=== PATIENT | female | born 1940 | race Caucasian/White ===

== ENCOUNTER 2019-11-21 10:57 | Outpatient (CLI) | payer MEDICARE ==
[2019-11-21 11:28] LABS: BASOPHILS # (AUTO) 0.1 10^3/uL (0.0-0.1); BASOPHILS % (AUTO) 0.4 %; EOSINOPHILS # (AUTO) 0.1 10^3/uL (0.0-0.7); EOSINOPHILS % (AUTO) 0.8 %; HGB - HEMOGLOBIN 8.4 g/dL (12.0-16.0); LYMPHOCYTES # (AUTO) 2.6 10^3/uL (1.5-3.5); LYMPHOCYTES % (AUTO) 20.2 %; MEAN CORPUSCULAR HEMOGLOBIN 21.1 pg (27.0-31.0); MEAN CORPUSCULAR HGB CONC 29.3 g/dL (32.0-36.0); MEAN CORPUSCULAR VOLUME 72.1 fL (81.0-99.0); MEAN PLATELET VOLUME 8.6 fL (7.9-10.8); MONOCYTES # (AUTO) 1.1 10^3/uL (0.0-1.0); MONOCYTES % (AUTO) 8.2 %; NEUTROPHILS # (AUTO) 8.9 10^3/uL (1.5-6.6); NEUTROPHILS % (AUTO) 69.2 %; PLT - PLATELET COUNT 426 10^3/uL (130-450); RED BLOOD COUNT 3.98 10^6/uL (4.20-5.40); RED CELL DISTRIBUTION WIDTH 20.1 % (12.0-15.0); WHITE BLOOD COUNT 12.8 x10^3/uL (4.8-10.8)
[2019-11-21 11:40] LABS: ALBUMIN 4.1 g/dL (3.2-5.5); ALBUMIN/GLOBULIN RATIO 1.1 (1.0-2.2); BILIRUBIN,TOTAL 0.7 mg/dL (0.2-1.0); CALCIUM 8.7 mg/dL (8.5-10.3); CREATININE 0.9 mg/dL (0.4-1.0); TOTAL PROTEIN 7.7 g/dL (6.7-8.2)
[2019-11-21 11:55] LABS: PLATELET ESTIMATE, MANUAL NORMAL (130-450,000) (NORMAL); PLATELET MORPHOLOGY NORMAL APPEARANCE (NORMAL)
== END 2019-11-21 10:58 | disposition home or self-care (01) ==
LOC: LAB 10:57
PROVIDERS: ATTEND Nurse Practitioner Family
DX: R10.31 Right lower quadrant pain (principal); R23.2 Flushing
CPT/HCPCS: 36415; 80053; 84443; 85025

== ENCOUNTER 2019-11-21 11:33 | Outpatient (CLI) | payer MEDICARE ==
--- NOTE | 2019-11-21 13:59 | XRAY Report ---
PROCEDURE: Lumbar Spine 2 View INDICATIONS: LOW BACK PAIN TECHNIQUE: 3 views of the lumbar spine were acquired. COMPARISON: None. FINDINGS: Bones: 5 lgs-bxg-[id number] vertebrae are present. There is normal bony alignment. Severe degenerativ e disc height loss and moderate endplate spur formation at the L4-5 level and L5-S1 levels. There is mild to moderate facet arthropathy. In combination this likely causes bilateral bony foraminal or taylor tral canal stenosis. There is mild disc height loss and the other lumbar levels and mild facet arthro nahomy as well. No vertebral body compression fractures. No suspicious bony lesions. Soft tissues: Overlying bowel gas pattern is normal. No suspicious soft tissue calcifications. IMPRESSION: 1. Severe disc degeneration at L4-5 and L5-S1. 2. Degenerative spur formation and facet arthropathy may cause bilateral bony foraminal or central ca nal narrowing. Consider MRI Reviewed by: Melania Briones MD on 11/21/2019 1:58 PM PDT Approved by: Melania Briones MD on 11/21/2019 1:58 PM PDT Station ID: [id number]
== END 2019-11-21 11:34 | disposition home or self-care (01) ==
LOC: DI 11:33
PROVIDERS: ATTEND Nurse Practitioner Family
DX: M51.36 Other intervertebral disc degeneration, lumbar region (principal); M51.37 Other intervertebral disc degeneration, lumbosacral region; M47.816 Spondylosis without myelopathy or radiculopathy, lumbar region; M47.817 Spondylosis without myelopathy or radiculopathy, lumbosacral region; R10.31 Right lower quadrant pain; R23.2 Flushing
CPT/HCPCS: 36415; 72100; 80053; 84443; 85025

== ENCOUNTER 2019-11-29 08:08 | Outpatient (CLI) | payer MEDICARE ==
[2019-11-29 08:30] LABS: BASOPHILS # (AUTO) 0.1 10^3/uL (0.0-0.1); BASOPHILS % (AUTO) 0.6 %; EOSINOPHILS # (AUTO) 0.4 10^3/uL (0.0-0.7); EOSINOPHILS % (AUTO) 3.7 %; HGB - HEMOGLOBIN 8.4 g/dL (12.0-16.0); LYMPHOCYTES # (AUTO) 2.8 10^3/uL (1.5-3.5); LYMPHOCYTES % (AUTO) 28.9 %; MEAN CORPUSCULAR HEMOGLOBIN 21.4 pg (27.0-31.0); MEAN CORPUSCULAR HGB CONC 29.2 g/dL (32.0-36.0); MEAN CORPUSCULAR VOLUME 73.5 fL (81.0-99.0); MEAN PLATELET VOLUME 8.8 fL (7.9-10.8); MONOCYTES # (AUTO) 0.8 10^3/uL (0.0-1.0); MONOCYTES % (AUTO) 7.7 %; NEUTROPHILS # (AUTO) 5.8 10^3/uL (1.5-6.6); NEUTROPHILS % (AUTO) 58.5 %; PLT - PLATELET COUNT 385 10^3/uL (130-450); RED BLOOD COUNT 3.92 10^6/uL (4.20-5.40); RED CELL DISTRIBUTION WIDTH 21.7 % (12.0-15.0); WHITE BLOOD COUNT 9.8 x10^3/uL (4.8-10.8)
[2019-11-29 08:43] LABS: CHOL/HDL RATIO 4.4 (<4.4); CHOLESTEROL 209 mg/dL; HDL CHOLESTEROL 47 mg/dL; LDL CHOLESTEROL,CALCULATED 139 mg/dL; VLDL CHOLESTEROL 23 mg/dL
[2019-11-29 08:52] LABS: HB2 TOTAL 8.7 g/dL; HEMOGLOBIN A1C 0.43 g/dL; HEMOGLOBIN A1C % 6.7 % (4.6-6.2)
== END 2019-11-29 08:09 | disposition home or self-care (01) ==
LOC: LAB 08:08
PROVIDERS: ATTEND Physician Assistant
DX: D50.9 Iron deficiency anemia, unspecified (principal); E78.5 Hyperlipidemia, unspecified; R73.9 Hyperglycemia, unspecified
CPT/HCPCS: 36415; 80061; 83036; 83721; 85025

== ENCOUNTER 2019-12-04 14:03 | Emergency (ER) | payer MEDICARE ==
--- NOTE | 2019-12-04 14:23 | ED Physician Documentation ---
History of Present Illness - Stated complaint Stated Complaint: WEAKNESS - Chief complaint Chief Complaint: General - History obtained from History obtained from: Patient, Family - History of Present Illness Timing: Today Pain level max: 0 Pain level now: 0 - Additonal information Additional information: 79-year-old female presents the emergency department complaint of generalized weakness. She states she has had an ongoing slow GI bleed over the past 2 weeks. She had a positive Hemoccult test with her doctor. She states over the past 2 days has become increasingly weak, short of breath with exertion. Feeling generally tired. She has an appointment with a surgeon in 1 week to discuss a colonoscopy and endoscopy. She states that this started after taking Motrin for her back. She is not currently taking any NSAIDs. She is not on any blood thinners. Last colonoscopy was approximately 13 years ago and was reportedly normal. No chest pain. Review of Systems Constitutional: denies: Fever, Chills Cardiac: denies: Palpitations, Calf pain Respiratory: denies: Cough, Hemoptysis, Wheezing GI: denies: Vomiting, Diarrhea : reports: Other (Normal stool color per patient.) Skin: denies: Rash Musculoskeletal: denies: Neck pain, Back pain Neurologic: denies: Headache PD PAST MEDICAL HISTORY - Past Medical History Past Medical History: Yes Musculoskeletal: Chronic back pain - Allergies Allergies/Adverse Reactions: Allergies Allergy/AdvReac Type Severity Reaction Status Date / Time No Known Drug Allergies Allergy Verified 12/04/19 14:56 - Living Situation Living Situation: reports: With family Living Arrangement: reports: At home - Social History Does the pt smoke?: No Does the pt have substance abuse?: No PD ED PE NORMAL - Vitals Vital signs reviewed: Yes - General General: Alert and oriented X 3, No acute distress, Well developed/nourished - HEENT HEENT: PERRL, Moist mucous membranes, Other (Pale conjunctiva) - Neck Neck: Supple, no meningeal sign - Cardiac Cardiac: RRR, Strong equal pulses - Respiratory Respiratory: No respiratory distress, Clear bilaterally - Abdomen Abdomen: Soft, Non tender, Non distended - Rectal Rectal: Pt declined (Had a rectal exam and fecal occult blood test with her doctor) - Back Back: No CVA TTP, No spinal TTP - Derm Derm: Warm and dry - Extremities Extremities: No edema - Neuro Neuro: Alert and oriented X 3 - Psych Psych: Normal mood, Normal affect Results - Vitals Vitals: Vital Signs - 24 hr 12/04/19 12/04/19 14:13 14:45 Temperature 36.8 C Heart Rate 104 H 88 Respiratory 16 16 Rate Blood Pressure 185/74 H 170/84 H O2 Saturation 98 99 Oxygen O2 Source Room air - EKG (time done) 1414 Rate: Rate (enter#) (92) Rhythm: NSR [place]: Normal, LAD Intervals: Normal MI QRS: Normal Ischemia: Normal ST segments - Labs Labs: Laboratory Tests 12/04/19 12/04/19 12/04/19 14:14 14:14 14:14 WBC 9.6 RBC 4.05 L Hgb 8.9 L Hct 30.4 L MCV 75.1 L MCH 22.0 L MCHC 29.3 L RDW 24.5 H Plt Count 336 MPV 8.8 Neut # (Auto) 5.9 Lymph # (Auto) 2.7 Cassia # (Auto) 0.8 Eos # (Auto) 0.2 Baso # (Auto) 0.0 Absolute Nucleated RBC 0.00 Nucleated RBC % 0.0 Manual Slide Review Indicated Platelet Estimate NORMAL (130-450,000) Platelet Morphology NORMAL APPEARANCE RBC Morph Micro Appear 1+ POLYCHROMASIA PT 12.9 H INR 1.1 APTT 25.7 Sodium Potassium Chloride Carbon Dioxide Anion Gap BUN Creatinine Estimated GFR (MDRD) Glucose Calcium Iron TIBC % Saturation Transferrin Total Bilirubin AST ALT Alkaline Phosphatase Total Protein Albumin Globulin Albumin/Globulin Ratio Lipase Urine Color Urine Clarity Urine pH Ur Specific [place] Urine Protein Urine Glucose (UA) Urine Ketones Urine Occult Blood Urine Nitrite Urine Bilirubin Urine Urobilinogen Ur Leukocyte Esterase Ur Microscopic Review Urine Culture Comments Blood Type O POSITIVE Antibody Screen NEGATIVE 12/04/19 12/04/19 12/04/19 14:14 14:20 15:05 WBC RBC Hgb Hct MCV MCH MCHC RDW Plt Count MPV Neut # (Auto) Lymph # (Auto) Cassia # (Auto) Eos # (Auto) Baso # (Auto) Absolute Nucleated RBC Nucleated RBC % Manual Slide Review Platelet Estimate Platelet Morphology RBC Morph Micro Appear PT INR APTT Sodium 135 Potassium 3.9 Chloride 102 Carbon Dioxide 24 Anion Gap 9.0 BUN 24 H Creatinine 0.9 Estimated GFR (MDRD) 61 L Glucose 172 H Calcium 9.0 Iron 373 H TIBC 458 H % Saturation 81 H Transferrin 327 Total Bilirubin 0.3 AST 15 ALT 12 Alkaline Phosphatase 75 Total Protein 7.5 Albumin 3.9 Globulin 3.6 Albumin/Globulin Ratio 1.1 Lipase 30 Urine Color YELLOW Urine Clarity CLEAR Urine pH 5.0 Ur Specific [place] >=1.030 H Urine Protein NEGATIVE Urine Glucose (UA) NEGATIVE Urine Ketones TRACE Urine Occult Blood NEGATIVE Urine Nitrite NEGATIVE Urine Bilirubin NEGATIVE Urine Urobilinogen 0.2 (NORMAL) Ur Leukocyte Esterase NEGATIVE Ur Microscopic Review NOT INDICATED Urine Culture Comments NOT INDICATED Blood Type Antibody Screen PD MEDICAL DECISION MAKING - ED course Complexity details: reviewed results, re-evaluated patient, considered differential, d/w patient ED course: Patient with a stable GI bleed. She was started on iron a week ago. She is on Prilosec, once a day at home and has been on this for about a year. We will increase this to twice a day. Pt is well-appearing, nontoxic. Afebrile. Hemoglobin has actually increased. Patient feels better after IV fluids. Patient counseled regarding signs and symptoms for which I believe and urgent re-evaluation would be necessary. Patient with good understanding of and agreement to plan and is comfortable going home at this time This document was made in part using voice recognition software. While efforts are made to proofread this document, sound alike and grammatical errors may occur. Departure - Departure Disposition: 01 Home, Self Care Clinical Impression: Dehydration Anemia Qualifiers: Anemia type: unspecified type Qualified Code(s): D64.9 - Anemia, unspecified Condition: Good Instructions: ED Dehydration Follow-Up: JENNY PATEL PA [Primary Care Provider] - Comments: Continue your current medications at home. You can increase your Prilosec to twice a day. Follow-up with your doctor for further care. Your iron levels appear above normal today. However given your bleeding, I would still continue your iron.
[2019-12-04 14:37] LABS: BASOPHILS % (AUTO) 0.4 %; EOSINOPHILS # (AUTO) 0.2 10^3/uL (0.0-0.7); EOSINOPHILS % (AUTO) 1.7 %; HGB - HEMOGLOBIN 8.9 g/dL (12.0-16.0); LYMPHOCYTES # (AUTO) 2.7 10^3/uL (1.5-3.5); LYMPHOCYTES % (AUTO) 28.5 %; MEAN CORPUSCULAR HGB CONC 29.3 g/dL (32.0-36.0); MEAN CORPUSCULAR VOLUME 75.1 fL (81.0-99.0); MEAN PLATELET VOLUME 8.8 fL (7.9-10.8); MONOCYTES # (AUTO) 0.8 10^3/uL (0.0-1.0); MONOCYTES % (AUTO) 7.9 %; NEUTROPHILS # (AUTO) 5.9 10^3/uL (1.5-6.6); PLT - PLATELET COUNT 336 10^3/uL (130-450); RED BLOOD COUNT 4.05 10^6/uL (4.20-5.40); RED CELL DISTRIBUTION WIDTH 24.5 % (12.0-15.0); WHITE BLOOD COUNT 9.6 x10^3/uL (4.8-10.8)
[2019-12-04 14:45] LABS: INR 1.1 (0.8-1.2); PT - PROTHROMBIN TIME 12.9 secs (9.9-12.6)
[2019-12-04 14:48] LABS: ALBUMIN 3.9 g/dL (3.2-5.5); ALBUMIN/GLOBULIN RATIO 1.1 (1.0-2.2); BILIRUBIN,TOTAL 0.3 mg/dL (0.2-1.0); CREATININE 0.9 mg/dL (0.4-1.0); TOTAL PROTEIN 7.5 g/dL (6.7-8.2)
[2019-12-04 14:52] LABS: PARTIAL THROMBOPLASTIN TIME 25.7 secs (24.9-33.3)
[2019-12-04] MEDS ORDERED: PANTOPRAZOLE 40 MG VIAL IVP STA (14:52)
[2019-12-04] MEDS ORDERED: SODIUM CHLORIDE 0.9% 1,000 ML IV STA ×2 (14:52)
[2019-12-04 14:56] LABS: PLATELET ESTIMATE, MANUAL NORMAL (130-450,000) (NORMAL); PLATELET MORPHOLOGY NORMAL APPEARANCE (NORMAL)
[2019-12-04 15:16] LABS: BILIRUBIN,URINE NEGATIVE (NEGATIVE); GLUCOSE, URINE (UA) NEGATIVE (NEGATIVE); KETONES,URINE (UA) TRACE mg/dL (NEGATIVE); LEUKOCYTE ESTERASE, URINE NEGATIVE (NEGATIVE); NITRITE,URINE NEGATIVE (NEGATIVE); OCCULT BLOOD,URINE NEGATIVE (NEGATIVE); PROTEIN,URINE NEGATIVE (NEGATIVE); UROBILINOGEN,URINE 0.2 (NORMAL) E.U./dL (NORMAL)
[2019-12-04 15:18] LABS: CLARITY,URINE CLEAR (CLEAR)
[2019-12-04 15:28] LABS: % IRON SATURATION 81 % (20-50); IRON 373 ug/dL (28-170); TOTAL IRON BINDING CAPACITY 458 ug/dL (250-450); TRANSFERRIN 327 mg/dL (192-382)
[2019-12-04 15:36] VITALS: BP 160/78
== END 2019-12-04 15:58 | disposition home or self-care (01) ==
LOC: ED 14:03
DX: E86.0 Dehydration (principal); D64.9 Anemia, unspecified; K92.2 Gastrointestinal hemorrhage, unspecified
CPT/HCPCS: 36415; 80053; 81001; 81003; 83540; 83690; 84466; 85025; 85610; 85730; 86850; 86900; 86901; 87086; 93005; 96374; 99284

== ENCOUNTER 2019-12-13 11:31 | Outpatient (CLI) | payer MEDICARE ==
[2019-12-13 11:43] LABS: MONOCYTES # (AUTO) 0.7 10^3/uL (0.0-1.0); RED CELL DISTRIBUTION WIDTH 28.4 % (12.0-15.0)
[2019-12-13 11:46] LABS: BASOPHILS # (AUTO) 0.1 10^3/uL (0.0-0.1); BASOPHILS % (AUTO) 0.6 %; EOSINOPHILS # (AUTO) 0.1 10^3/uL (0.0-0.7); EOSINOPHILS % (AUTO) 1.6 %; LYMPHOCYTES # (AUTO) 1.9 10^3/uL (1.5-3.5); LYMPHOCYTES % (AUTO) 24.4 %; MEAN CORPUSCULAR HEMOGLOBIN 23.5 pg (27.0-31.0); MEAN CORPUSCULAR HGB CONC 29.6 g/dL (32.0-36.0); MEAN CORPUSCULAR VOLUME 79.3 fL (81.0-99.0); MEAN PLATELET VOLUME 8.6 fL (7.9-10.8); MONOCYTES % (AUTO) 8.6 %; NEUTROPHILS # (AUTO) 5.1 10^3/uL (1.5-6.6); NEUTROPHILS % (AUTO) 64.4 %; PLT - PLATELET COUNT 300 10^3/uL (130-450); RED BLOOD COUNT 4.26 10^6/uL (4.20-5.40); WHITE BLOOD COUNT 7.9 x10^3/uL (4.8-10.8)
[2019-12-13 12:16] LABS: RBC MORPHOLOGY (MULTIPLE) 4+ ANISOCYTOSIS (NORMAL)
== END 2019-12-13 11:32 | disposition home or self-care (01) ==
LOC: LAB 11:31
PROVIDERS: ATTEND Physician Assistant
DX: D50.9 Iron deficiency anemia, unspecified (principal)
CPT/HCPCS: 36415; 85025

== ENCOUNTER 2019-12-28 11:55 | Day surgery (SDC) | payer MEDICARE ==
[2019-12-28] MEDS ORDERED: LACTATED RINGERS 1,000 ML IV ONE ×3 (12:01→15:48)
[2019-12-28] MEDS ORDERED: fentaNYL 250 MCG/5 ML VIAL IVP ONE (13:59)
[2019-12-28] MEDS ORDERED: MIDAZOLAM 2 MG/2 ML VIAL IVP ONE (13:59)
[2019-12-28] MEDS ORDERED: LIDO GARGLE 30 ML BOTTLE ONE (14:00)
[2019-12-28] MEDS ORDERED: LIDO GARGLE 30 ML BOTTLE PO ONE (14:09)
[2019-12-28] MEDS ORDERED: BENZOCAINE/TETRACAINE/BUTAMBEN 20 GM TOP ONE (14:10)
[2019-12-28 15:15] LABS: BASOPHILS % (AUTO) 0.6 %; EOSINOPHILS % (AUTO) 0.4 %; HGB - HEMOGLOBIN 9.7 g/dL (12.0-16.0); LYMPHOCYTES # (AUTO) 1.5 10^3/uL (1.5-3.5); LYMPHOCYTES % (AUTO) 21.5 %; MEAN CORPUSCULAR HEMOGLOBIN 24.4 pg (27.0-31.0); MEAN CORPUSCULAR HGB CONC 29.7 g/dL (32.0-36.0); MEAN CORPUSCULAR VOLUME 82.4 fL (81.0-99.0); MEAN PLATELET VOLUME 9.1 fL (7.9-10.8); MONOCYTES # (AUTO) 0.6 10^3/uL (0.0-1.0); MONOCYTES % (AUTO) 8.5 %; NEUTROPHILS # (AUTO) 4.9 10^3/uL (1.5-6.6); NEUTROPHILS % (AUTO) 68.7 %; PLT - PLATELET COUNT 235 10^3/uL (130-450); RED BLOOD COUNT 3.97 10^6/uL (4.20-5.40); WHITE BLOOD COUNT 7.1 x10^3/uL (4.8-10.8)
[2019-12-28 15:28] LABS: ALBUMIN 3.4 g/dL (3.2-5.5); ALBUMIN/GLOBULIN RATIO 1.1 (1.0-2.2); BILIRUBIN,TOTAL 0.3 mg/dL (0.2-1.0); CALCIUM 8.7 mg/dL (8.5-10.3); CREATININE 0.7 mg/dL (0.4-1.0); TOTAL PROTEIN 6.5 g/dL (6.7-8.2)
[2019-12-28 15:29] LABS: PLATELET ESTIMATE, MANUAL NORMAL (130-450,000) (NORMAL); PLATELET MORPHOLOGY NORMAL APPEARANCE (NORMAL)
[2019-12-28] MEDS ORDERED: IOVERSOL 320 100 ML VIAL IVP ONE ×2 (16:17→19:23)
[2019-12-28 16:18] VITALS: BP 163/69
--- NOTE | 2019-12-28 18:12 | CT Report ---
PROCEDURE: Abdomen/Pelvis W INDICATIONS: Large right colon mass CONTRAST: IV CONTRAST: Optiray 320 ml: 100 PO CONTRAST: *NO PO CONTRAST TECHNIQUE: After the administration of oral and intravenous contrast, 5 mm thick sections acquired from the diap hragms to the symphysis. 5 mm thick coronal and sagittal reformats were acquired. For radiation dos e reduction, the following was used: automated exposure control, adjustment of mA and/or kV accordin g to patient size. COMPARISON: None. FINDINGS: Image quality: Excellent. ABDOMEN: Lung bases: There is mild atelectasis and scarring in the lung bases. Heart size is normal. There ar e partially visualized breast implants. There is a small hiatal hernia. Solid organs: There are 3 small hypodensities in the liver which are too small to characterize, measu ring up to 0.8 cm in segment 8 of the right hepatic lobe. Gallbladder appears within normal limits wi thout calcified gallstones. Biliary system is non dilated. Pancreas enhances normally. No adrenal n odules. Kidneys demonstrate no hydronephrosis. Peritoneum and bowel: Small bowel loops demonstrate normal wall thickness and caliber. There is segm ental wall thickening of the proximal ascending colon measuring up to approximately 5.1 cm in length with associated enhancement and mild pericolonic fat stranding. Colonic diverticulosis is demonstrate d without acute diverticulitis. No free fluid or air. Nodes and vessels: No retroperitoneal or mesenteric adenopathy by size criteria. Aorta and inferior vena cava are normal in size. Miscellaneous: No ventral hernias. PELVIS: Genitourinary: Bladder wall thickness is normal. Miscellaneous: No inguinal hernias or adenopathy. Bones: No suspicious bony lesions. No vertebral body compression fractures. IMPRESSION: 1. Segmental wall thickening and enhancement of the proximal descending colon is highly suspicious fo r an intramural neoplasm, such as adenocarcinoma. No associated bowel obstruction. 2. Small hypodense foci in the liver are too small to characterize. These likely represent small cyst s statistically but metastatic disease cannot be excluded. Reviewed by: Lj Dougherty MD on 12/28/2019 6:10 PM PDT Approved by: Lj Dougherty MD on 12/28/2019 6:10 PM PDT Station ID: [id number]
== END 2019-12-28 11:56 | disposition home or self-care (01) ==
LOC: SDS 11:55
PROVIDERS: ATTEND Surgery
PROC: 0DB68ZX Excision of Stomach, Via Natural or Artificial Opening Endoscopic, Diagnostic (ICD-10-PCS; 2019-12-28)
PROC: 0DB38ZX Excision of Lower Esophagus, Via Natural or Artificial Opening Endoscopic, Diagnostic (ICD-10-PCS; 2019-12-28)
PROC: 0DB48ZX Excision of Esophagogastric Junction, Via Natural or Artificial Opening Endoscopic, Diagnostic (ICD-10-PCS; 2019-12-28)
PROC: 0DBK8ZX Excision of Ascending Colon, Via Natural or Artificial Opening Endoscopic, Diagnostic (ICD-10-PCS; principal; 2019-12-28 13:00)
PROC: 0DB98ZX Excision of Duodenum, Via Natural or Artificial Opening Endoscopic, Diagnostic (ICD-10-PCS; 2019-12-28 13:00)
DX: C18.2 Malignant neoplasm of ascending colon (principal); R13.10 Dysphagia, unspecified; K21.9 Gastro-esophageal reflux disease without esophagitis; D50.9 Iron deficiency anemia, unspecified; K57.30 Diverticulosis of large intestine without perforation or abscess without bleeding; K44.9 Diaphragmatic hernia without obstruction or gangrene; K64.4 Residual hemorrhoidal skin tags; K64.8 Other hemorrhoids; Z85.3 Personal history of malignant neoplasm of breast; Z87.891 Personal history of nicotine dependence
CPT/HCPCS: 36415; 43239; 45380; 74177; 80053; 82378; 85025; A9270; J3010; J7120; Q9967

== ENCOUNTER 2020-01-10 10:56 | Outpatient (CLI) | payer MEDICARE | END 2020-01-10 10:57 | disposition home or self-care (01) | LOC: LAB 10:56 | PROVIDERS: ATTEND Surgery | DX: Z01.812 Encounter for preprocedural laboratory examination (principal); Z20.828 Contact with and (suspected) exposure to other viral communicable diseases; C18.2 Malignant neoplasm of ascending colon ==

== ENCOUNTER 2020-01-15 08:45 | Inpatient (IN) | payer MEDICARE ==
[2020-01-15] MEDS ORDERED: CEFAZOLIN SODIUM IN 0.9 % NACL 2 GM/100 ML BAG IV ONE (10:37)
[2020-01-15] MEDS ORDERED: metroNIDAZOLE 500 MG/100 ML 500 MG/100 ML BAG ONE (10:37)
[2020-01-15] MEDS ORDERED: LIDOCAINE 1%-EPI 1:100000 20 ML MDV ONE (11:10)
[2020-01-15] MEDS ORDERED: BUPIVACAINE 0.5% PF 30 ML VIAL ONE (11:10)
[2020-01-15] MEDS ORDERED: LACTATED RINGERS 1,000 ML IV ONE ×2 (11:14→14:55)
--- NOTE | 2020-01-15 11:27 | ANESTHESIA ---
Pre-Anesthesia VS, & Labs - Diagnosis acending colon cancer - Procedure laparoscopic right hemicolectomy Vital Signs: Temp Pulse Resp BP Pulse Ox 37 C 104 H 18 171/83 H 99 01/15/20 10:50 01/15/20 10:50 01/15/20 10:50 01/15/20 10:50 01/15/20 10:50 Height 5 ft 5 in Weight (kg) 77.5 kg Body Mass Index 29.1 - NPO >8 hours - Is Patient ?: No Home Medications and Allergies Home Medications: Ambulatory Orders Acetaminophen [Tylenol Extra Strength] 1 - 2 tab PO Q4HR PRN 01/10/20 Ferrous Sulfate 325 mg PO DAILY 01/10/20 Magnesium Citrate 250 mg PO DAILY 12/28/19 Omeprazole 20 mg PO DAILY 12/28/19 ALPRAZolam [Alprazolam] 0.25 mg PO TID 01/09/20 Acetaminophen [Tylenol Extra Strength] 1 - 2 tab PO Q4HR PRN 01/10/20 Ferrous Sulfate 325 mg PO DAILY 01/10/20 Allergies/Adverse Reactions: Allergies Allergy/AdvReac Type Severity Reaction Status Date / Time No Known Drug Allergies Allergy Verified 12/04/19 14:56 Anes History & Medical History - Anesthetic History Anesthesia Complications: reports: No previous complications - Medical History Cardiovascular: reports: None Pulmonary: reports: None Gastrointestinal: reports: GERD Urinary: reports: None Musculoskeletal: reports: Chronic back pain Endocrine/Autoimmune: reports: Type 2 diabetes Skin: reports: Psoriasis Smoking Status: Never smoker - Surgical History General: Colonoscopy, EGD Eyes Ears Nose Throat (EENT): Cataracts, Detached retina repair Gynecologic: Hysterectomy, Other Exam General: Alert, Oriented x3 Dental: WNL Mouth Opening: Greater than 4 Fingerbreadths Neck Mobility: Normal Mallampati classification: I Respiratory: Lungs clear Cardiovascular: Regular rate Mental/Cognitive Status: Alert/Oriented X3 Plan Anesthesia Type: General, Transverse Abdominis Plane (TAP) Block Consent for Procedure(s) Verified and Reviewed: Yes Code Status: Attempt Resuscitation ASA classification: 2-Mild systemic disease Is this case an emergency?: No
[2020-01-15] MEDS ORDERED: CELECOXIB 100 MG CAPSULE PO ONE (11:31)
[2020-01-15] MEDS ORDERED: GABAPENTIN 400 MG CAPSULE ONE (11:32)
[2020-01-15] MEDS ORDERED: ACETAMINOPHEN 1,000 MG/100 ML 100 ML IV ONE (11:32)
[2020-01-15] MEDS ORDERED: ROPIVACAINE 0.2% 200 MG/100 ML BAG EP ONE (11:40)
[2020-01-15] MEDS ORDERED: BUPIVACAINE 0.5%-EPI 1:200000 PF 30 ML VIAL SUBQ ONE ×2 (12:13)
[2020-01-15] MEDS ORDERED: LIDOCAINE 1%-EPI 1:100000 30 ML MDV SUBQ ONE ×2 (12:13)
--- NOTE | 2020-01-15 12:51 | PHARMACY PROGRESS NOTE ---
- Best Possible Medication History Admit Date and Time: 01/15/20 1047 Processed by: Nursing Medication History completed: Yes As the person ultimately responsible for medication therapy, providers are able to order a medication from an existing home medication list in [facility] via the "Reconcile Routine" prior to Confirmation of that medication by windows desktop support. Such practice is discouraged except when the physician, in their clinical judgment, deems that a medical need exists for a medication without regard to previous use.
[2020-01-15] MEDS ORDERED: ONDANSETRON 4 MG/2 ML VIAL IVP PRN ×2 (14:22→15:06)
[2020-01-15] MEDS ORDERED: methocarbamoL 500 MG TABLET PO PRN (14:34)
--- NOTE | 2020-01-15 14:35 | OPERATIVE REPORT ---
Operative Report - General Admit Date: 01/15/20 Procedure Date: 01/15/20 Planned Procedure: 1. Diagnostic laparoscopy 2. Laparoscopic adhesio lysis 3. Laparoscopic right colon resection 4. Laparoscopic hepatic flexure mobilization 5. Open umbilical hernia repair 6. Extracorporeal [id number] functional end-to-end isoperistaltic anastomosis 7. Tap block per anesthesia 8. Drain placement Pre-Op Diagnosis: Right colonic mass, near obstruction, bleeding/Blood loss anemia Procedure Performed: 1. Diagnostic laparoscopy 2. Laparoscopic adhesio lysis 3. Laparoscopic right colon resection 4. Laparoscopic hepatic flexure mobilization 5. Open umbilical hernia repair 6. Extracorporeal [id number] functional end-to-end isoperistaltic anastomosis 7. Tap block per anesthesia 8. Drain placement Post Op Diagnosis: Same, dense right colonic adhesions, no extracolonic metastases grossly - Procedure Note Primary Surgeon: Dr. Zulema Norton Secondary Surgeon: Dr. Tab Schroeder Anesthesia Provider: Leeanna Santana Anesthesia Technique: General ET tube, Local Pathology: 1. Right colon, normal ileum, cecum, appendix, ascending colon, hepatic flexure 2. Omental implant 3. Partial omentectomy Estimated Blood Loss (mL): 75 Drain/Tube Type: Santino drain Indications: Colon cancer, right. See electronic medical record and clinic note of Dr. Nikolas Vega. Findings: 1. Large near obstructing ascending colonic mass with site of impending perforation suture-ligated on expectation 2. Dense right-sided adhesions, including the ascending colon and transverse colon 3. Patent side to side functional end-to-end isoperistaltic anastomosis, viable, peristaltic, and intact 4. No evidence of extracolonic metastases grossly within the liver; single omental node sent unlikely metastatic disease Complications: None - Other Other Information/Narrative: Laparoscopic Right Colectomy: INDICATION: See electronic medical record and office note of Dr. Norton. OPERATIVE REPORT: The patient was taken to the operating room, placed supine on the operating tab le. At this time, bilateral lower extremity serial compression devices were placed. Informed consent was confirmed by OR staff, and thereafter, the patient was induced for general endotracheal anesthesia. The patient was placed for a Gabriel catheter and orogastric tube was inserted as well. Perioperative antibiotics of 1 g of Invanz were dosed within an hour of incision. All pressure points were offloaded and padded. At this time, a timeout was called and agreed to by all in the room. Laparoscopic access was achieved through open Henao at the level of the umbilicus in usual fashion. Please note a balloon Henao was used patient tolerated insufflation to 15 mmHg without any complication. Diagnostic laparoscopy was without any evidence of any inadvertent injury. Additional trochars were placed as follows: 1. suprapubic 5 mm trocar 2. Left upper quadrant 5 mm trocar 3. Left lower quadrant 5 mm trocar After pneumoperitoneum was established, and trochars were placed as per above under findings, the patient was thereafter placed in steep Trendelenburg with the right side up and we proceeded to continue with diagnostic laparoscopy. Again, liver was evaluated as was the omentum with findings as noted above. After adhesiolysis was performed, the omentum, which was freed from the pelvis and associated adhesions, was ultimately lifted above the transverse colon and the small bowel was reflected laterally to the left upper quadrant. At this time with the right colon tented, the ileocolic artery was noted after appropriate traction of the cecum into the anterior lateral direction. The associated "bowstringing" was seen and the peritoneum was thereafter scored using laparoscopic edelmira with energy and the underlying retroperitoneal structures were gently swept away. Ultimately, the ileocolic pedicle was identified, encircled and it was divided using a vascular load of an Endo-THANH stapler. With this completed, we proceeded to continue carefully sweeping the retroperitoneal structures posteriorly and away. The duodenum was protected throughout the entirety of this operative intervention. With the ileocolic artery divided, we proceeded to lyse the right colon's lateral peritoneal attachments, which were divided using cautery and the Ligasure Device. Once this was performed through to the hepatic flexure, we at this time having mobilized caecum, divided the ileocolic pedicle, mobilized the terminal ileum, we proceeded to place the patient in reverse Trendelenburg, allowing for better exposure for the remainder of this operative intervention. Using the Ligasure Advanced, we dissected free the gastrocolic ligament. The omentum was carefully from the transverse colon and this was also freed from adhesions within the mesentery as well. This was carefully performed through to hepatic flexure. Once accomplished, the transverse mesocolon could be appropriately elevated and evaluated. Again, the duodenum, head of pancreas were very carefully swept from beneath transverse mesocolon with gentle blunt dissection to avoid any vascular avulsion or injury. With these structures again protected and identified throughout the entirety of this case, we proceeded to continue marching up the right colonic mesentery, at which time the transverse mesocolon was elevated and tented bilaterally. With appropriate exposure, we proceeded to continue using the energy device to further delineate the branches of the middle colic. This was thereafter skeletonized and depending upon whether proceeding with a formal Right Hemicolectomy or Extended Right Colectomy, the vessels were divided using a vascular load of the Endo-THANH stapler (please see above for specifics under findings). With vasculature divided, the remainder of the transverse mesocolon was addressed using, again, the Ligasure vessel sealer. With this completed and the remainder of colonic mesocolon divided, we proceeded to perform the superior takedown of the hepatic flexure. Again, the duodenum and head of pancreas were noted and protected throughout the entirety of this operative procedure. Using the vessel sealer with the gastrocolic omentum already divided and the lesser sac entered, dissection was carried down towards the hepatic flexure and ultimately the hepatocolic ligament was divided, and the hepatic flexure was retracted medially to divide the final attachments using a gain the vessel sealer. Once the hepatic flexure was ultimately taken, we proceeded to assess for the mobility of the right colon, hepatic flexure, proximal and mid transverse colons which were all mobilized through to the distal transverse colon. With this completed, we thereafter proceeded with the anastamosis as follows. Extracorporeal Enterocolonic Anastamosis: The patient was planned for an extracorporeal stapled [id number] functional end-to-end anastomosis at this time (isoperistaltic). Once adequate length was achieved, again, the mobilized colon was exteriorized through incision and again was felt appropriate for a [id number] functional end-to-end anastomosis with adequate, viable, grossly normal margins. With the small bowel and colon lying comfortably besides one another, we chose a point of proximal margin which was divided for its mesentery, clamp-clamp, cut, tie with Vicryl ligature. The small bowel was divided using a Linear Cutter stapler. The colon was similarly divided at a chosen distal margin, within the transverse colon. This was again divided for its mesentery, using both the [id number] and tie process, using Vicryl ligatures. The colon was thereafter divided using the Linear Cutter stapler as well. Again, with the small bowel and colon lying comfortably beside one another with no torsion or twisting, enterotomies were made first through the small bowel at its antimesenteric border, and thereafter similarly through the antimesenteric border of the colon as well. These areas were pink, viable and notable for healthy bleeding margins. Once the enterotomy and colotomy was made an linear cutting stapler was inserted and once the taenia from the transverse colon was appropriately incorporated into the planned anastomotic site and mesentery was assured to be excluded from the staple line, the stapler was fired. This was done twice. Once stapler was withdrawn, 2 crotch stitches were placed in a seromuscular fashion. With this completed, Allis clamps were used to approximate the enterotomies and these were additionally in two layers, first with a running [place] stitch. Additional reinforcement was achieved with 2-0 Vicryl stitches to imbricate the staple lines as well as reinforce closure in a [place]t fashion. Once this was completed, the abdomen was irrigated and aspirated clear with no evidence of active bleeding. Once this was completed, a stapled [id number] functional end-to-end anastomosis was widely patent and again already confirmed as stated above for viability by pink healthy mucosa with bleeding edges and noted peristalsis. With this ileocolonic anastamosis completed, after confirming the anastomosis was intact and hemostatic, we proceeded to close the extraction site as follows: 1 - bidirectional loop PDS 2 - See below for skin closure With this completed, omentum was replaced over the anastomosis where available and after the abdomen had been extensively irrigated and aspirated clear, we proceeded to desufflate the abdomen. Santino drain placed through the left lower quadrant trocar and secured in place with 2-0 nylon. The incisions were all closed using skin matt after again irrigating. All sites closed with skin matt. The patient tolerated the procedure well for which there was no complication. All counts for sponges, needles, and instruments were correct at the conclusion of this operative case. The wounds were instilled with local anesthetic. The wounds were dressed with Telfa and Tegaderm, the patient was extubated and taken to postanesthesia care unit in stable condition. I was physically present for the entire procedure. These note this was a combined case where I was co-surgeon to Dr. Zulema Norton and throughout the entirety of the case we were both essential for visualization exposure dissection camera driving and performing the anastomosis and closure for which we would not be able to perform this independently.
[2020-01-15] MEDS ORDERED: LABETALOL 20 MG/4 ML SYRINGE IVP PRN (15:06)
[2020-01-15] MEDS ORDERED: ATROPINE ABBOJECT 1 MG/10 ML SYRINGE IVP PRN (15:06)
[2020-01-15] MEDS ORDERED: fentaNYL 100 MCG/2 ML VIAL IVP PRN (15:06)
[2020-01-15] MEDS ORDERED: METOCLOPRAMIDE 10 MG/2 ML VIAL IVP PRN (15:06)
[2020-01-15] MEDS ORDERED: NALOXONE 0.4 MG/ML VIAL IVP PRN (15:06)
[2020-01-15] MEDS ORDERED: HYDROmorphone 0.5 MG/0.5 ML SYRINGE IVP PRN (15:06)
[2020-01-15] MEDS ORDERED: MORPHINE 2 MG/ML CARPUJECT IVP PRN (15:06)
[2020-01-15] MEDS ORDERED: ePHEDrine 50 MG/ML VIAL IVP PRN (15:06)
[2020-01-15] MEDS ORDERED: HYDROmorphone 0.5 MG/0.5 ML SYRINGE ONE (15:26)
[2020-01-15] MEDS ORDERED: LACTATED RINGERS 1,000 ML IV SCH (16:00)
[2020-01-15] MEDS: HYDROmorphone 0.5 MG/0.5 ML SYRINGE IVP PRN (16:44)
[2020-01-15] MEDS: LACTATED RINGERS 1,000 ML IV SCH (16:57)
[2020-01-15] MEDS: KETOROLAC 15 MG/ML VIAL IVP SCH (18:03)
[2020-01-15] MEDS ORDERED: DEXAMETHASONE 4 MG/ML VIAL IVP ONE (18:11)
[2020-01-15] MEDS ORDERED: GLYCOPYRROLATE 1 MG/5 ML VIAL IVP ONE (18:11)
[2020-01-15] MEDS ORDERED: fentaNYL 100 MCG/2 ML VIAL IVP ONE (18:11)
[2020-01-15] MEDS ORDERED: PROPOFOL 200 MG/20 ML VIAL IVP ONE (18:11)
[2020-01-15] MEDS ORDERED: LABETALOL 5 MG/1 ML 20 ML MDV IVP ONE (18:11)
[2020-01-15] MEDS ORDERED: ROCURONIUM 50 MG/5 ML VIAL IVP ONE (18:11)
[2020-01-15] MEDS ORDERED: KETAMINE 500 MG/10 ML VIAL IVP ONE (18:11)
[2020-01-15] MEDS ORDERED: LIDOCAINE-MPF 2% 5 ML VIAL IM ONE (18:11)
[2020-01-15] MEDS: ceFAZolin 2 GM in SODIUM CHLORIDE 0.9% 100ML 100 ML IV SCH (20:54)
[2020-01-15] MEDS: PREGABALIN 25 MG CAPSULE PO SCH (20:54)
[2020-01-16] MEDS: KETOROLAC 15 MG/ML VIAL IVP SCH ×4 (00:05→17:58)
[2020-01-16] MEDS: ceFAZolin 2 GM in SODIUM CHLORIDE 0.9% 100ML 100 ML IV SCH (03:59)
[2020-01-16] MEDS: LACTATED RINGERS 1,000 ML IV SCH (03:59)
[2020-01-16] MEDS: HYDROmorphone 0.5 MG/0.5 ML SYRINGE IVP PRN ×3 (04:11→10:33)
[2020-01-16 05:24] LABS: BASOPHILS % (AUTO) 0.2 %; EOSINOPHILS # (AUTO) 0.1 10^3/uL (0.0-0.7); EOSINOPHILS % (AUTO) 1.3 %; HGB - HEMOGLOBIN 8.4 g/dL (12.0-16.0); LYMPHOCYTES # (AUTO) 1.7 10^3/uL (1.5-3.5); LYMPHOCYTES % (AUTO) 16.2 %; MEAN CORPUSCULAR HEMOGLOBIN 23.9 pg (27.0-31.0); MEAN CORPUSCULAR HGB CONC 29.1 g/dL (32.0-36.0); MEAN CORPUSCULAR VOLUME 82.3 fL (81.0-99.0); MEAN PLATELET VOLUME 9.5 fL (7.9-10.8); MONOCYTES # (AUTO) 0.8 10^3/uL (0.0-1.0); MONOCYTES % (AUTO) 7.8 %; NEUTROPHILS # (AUTO) 7.7 10^3/uL (1.5-6.6); NEUTROPHILS % (AUTO) 74.2 %; PLT - PLATELET COUNT 235 10^3/uL (130-450); RED BLOOD COUNT 3.51 10^6/uL (4.20-5.40); RED CELL DISTRIBUTION WIDTH 25.8 % (12.0-15.0); WHITE BLOOD COUNT 10.4 x10^3/uL (4.8-10.8)
[2020-01-16 05:34] LABS: CALCIUM 8.3 mg/dL (8.5-10.3); CREATININE 0.8 mg/dL (0.4-1.0)
[2020-01-16 05:56] LABS: PLATELET ESTIMATE, MANUAL NORMAL (130-450,000) (NORMAL); PLATELET MORPHOLOGY NORMAL APPEARANCE (NORMAL)
[2020-01-16] MEDS: PANTOPRAZOLE 40 MG VIAL IVP SCH (06:05)
[2020-01-16] MEDS: ENOXAPARIN 40 MG/0.4 ML SYRINGE SUBQ SCH (09:31)
[2020-01-16] MEDS: PREGABALIN 25 MG CAPSULE PO SCH ×2 (09:31→20:39)
[2020-01-16] MEDS ORDERED: ACETAMINOPHEN 325 MG TABLET PO PRN (13:34)
[2020-01-16] MEDS ORDERED: oxyCODONE 5 MG TABLET PO PRN (13:35)
--- NOTE | 2020-01-16 14:54 | PROVIDER PROGRESS NOTE ---
Subjective - General Admit Date: 01/15/20 Procedure Date: 01/15/20 Post Op Days: 1 Procedure Performed: Laparoscopic right kim colectomy - Review of Systems Wound/Incisions: positive: Dressing dry and intact Drain Type: Santino Drain Output Description: Serosanguinous General: positive: No symptoms HEENT: positive: No symptoms Pulmonary: positive: No symptoms Cardiovascular: positive: No symptoms Gastrointestinal: positive: Other (Feels like a bowel movement will be happening soon.) Objective - Patient Data Reviewed Vital Signs: Yes Vital Signs: Vital Signs x48h Temp Pulse Pulse Resp BP Pulse Ox 01/16/20 12:08 37 C 69 16 96 01/16/20 12:00 37.7 C H 80 150/69 H 96 01/16/20 08:00 37 C 69 16 129/52 L 96 Weight: Weight 01/14/20 01/15/20 01/16/20 23:59 23:59 23:59 Weight (kg) 77.5 kg Intake & Output: Intake and Output Totals x24h 01/14/20 01/15/20 01/16/20 23:59 23:59 23:59 Intake Total 2190 2005.000 Output Total 1030 865 Balance 1160 1140.000 - Lab Results Lab Results: 01/16/20 05:05 01/16/20 05:05 Other Lab Results: Lab Results x24hrs 01/16/20 01/16/20 01/16/20 Range/Units 11:37 07:53 05:05 WBC (4.8-10.8) x10^3/uL RBC (4.20-5.40) 10^6/uL Hgb (12.0-16.0) g/dL Hct (37.0-47.0) % MCV (81.0-99.0) fL MCH (27.0-31.0) pg MCHC (32.0-36.0) g/dL RDW (12.0-15.0) % Plt Count (130-450) 10^3/uL MPV (7.9-10.8) fL Neut # (Auto) (1.5-6.6) 10^3/uL Lymph # (Auto) (1.5-3.5) 10^3/uL Mcmullen # (Auto) (0.0-1.0) 10^3/uL Eos # (Auto) (0.0-0.7) 10^3/uL Baso # (Auto) (0.0-0.1) 10^3/uL Absolute Nucleated RBC x10^3/uL Nucleated RBC % /100WBC Manual Slide Review WBC Morphology (NORMAL) Platelet Estimate (NORMAL) Platelet Morphology (NORMAL) RBC Morph Micro Appear (NORMAL) Sodium 137 (135-145) mmol/L Potassium 3.9 (3.5-5.0) mmol/L Chloride 104 (101-111) mmol/L Carbon Dioxide 25 (21-32) mmol/L Anion Gap 8.0 (6-13) BUN 10 (6-20) mg/dL Creatinine 0.8 (0.4-1.0) mg/dL Estimated GFR (MDRD) 69 L (>89) Glucose 141 H (70-100) mg/dL POC Whole Bld Glucose 94 114 H (70 - 100) mg/dL Calcium 8.3 L (8.5-10.3) mg/dL 01/16/20 01/15/20 01/15/20 Range/Units 05:05 20:27 16:43 WBC 10.4 (4.8-10.8) x10^3/uL RBC 3.51 L (4.20-5.40) 10^6/uL Hgb 8.4 L (12.0-16.0) g/dL Hct 28.9 L (37.0-47.0) % MCV 82.3 (81.0-99.0) fL MCH 23.9 L (27.0-31.0) pg MCHC 29.1 L (32.0-36.0) g/dL RDW 25.8 H (12.0-15.0) % Plt Count 235 (130-450) 10^3/uL MPV 9.5 (7.9-10.8) fL Neut # (Auto) 7.7 H (1.5-6.6) 10^3/uL Lymph # (Auto) 1.7 (1.5-3.5) 10^3/uL Mcmullen # (Auto) 0.8 (0.0-1.0) 10^3/uL Eos # (Auto) 0.1 (0.0-0.7) 10^3/uL Baso # (Auto) 0.0 (0.0-0.1) 10^3/uL Absolute Nucleated RBC 0.00 x10^3/uL Nucleated RBC % 0.0 /100WBC Manual Slide Review Indicated WBC Morphology NORMAL APPEARANCE (NORMAL) Platelet Estimate NORMAL (130-450,000) (NORMAL) Platelet Morphology NORMAL APPEARANCE (NORMAL) RBC Morph Micro Appear 1+ HYPOCHROMASIA (NORMAL) Sodium (135-145) mmol/L Potassium (3.5-5.0) mmol/L Chloride (101-111) mmol/L Carbon Dioxide (21-32) mmol/L Anion Gap (6-13) BUN (6-20) mg/dL Creatinine (0.4-1.0) mg/dL Estimated GFR (MDRD) (>89) Glucose (70-100) mg/dL POC Whole Bld Glucose 208 H 152 H (70 - 100) mg/dL Calcium (8.5-10.3) mg/dL - Current Medications Current Medications: Current Medications Generic Name Dose Route Start Last Admin Trade Name Freq PRN Reason Stop Dose Admin Enoxaparin Sodium 40 mg 01/16/20 09:00 01/16/20 09:31 Lovenox SUBQ 40 mg DAILY DIONISIO Administration Hydromorphone HCl 0.5 mg 01/15/20 16:04 01/16/20 10:33 Dilaudid Inj Syringe IVP 0.5 mg Q30M PRN Administration Breakthrough Pain Ketorolac Tromethamine 15 mg 01/15/20 18:00 01/16/20 12:19 Toradol Inj (15mg) IVP 01/20/20 17:59 15 mg Q6HR DIONISIO Administration Ondansetron HCl 4 mg 01/15/20 14:22 01/15/20 16:57 Zofran Inj IVP 4 mg Q6HR PRN Administration Nausea / Vomiting Pantoprazole Sodium 40 mg 01/16/20 07:00 01/16/20 06:05 Protonix IVP 40 mg QDAC DIONISIO Administration Pregabalin 75 mg 01/15/20 21:00 01/16/20 09:31 Lyrica PO 75 mg BID DIONISIO Administration - Physical Exam Wound/Incisions: positive: Dressing dry and intact, No drainage General Appearance: positive: No acute distress, Alert Eyes Bilateral: positive: Normal inspection, PERRL ENT: positive: ENT inspection nml, Pharynx nml, No signs of dehydration Neck: positive: Nml inspection, Thyroid nml Respiratory: positive: Chest non-tender, No respiratory distress, Breath sounds nml Cardiovascular: positive: Regular rate & rhythm Abdomen: positive: Nml bowel sounds, Other (Appropriately tender to palpation with active bowel sound. Wounds are clean and dry). negative: Guarding, Rebound Skin: positive: Color nml ABX Reporting Has patient been on IV antibiotics over the past 48 hours?: Yes Impression/Plan - Problem List Problem List: Recovering as expected after laparoscopic right kim colectomy. Has been up walking in her room and walking in the halls. Reports pain is well controlled 1. Continue ERAS protocol. 2. Change to oral pain meds and stop dilaudid. Will add Oxycodone only to be used if other measures are not effective. 3. Labs in the AM 4. Saline lock IV
[2020-01-16] MEDS: CARBOXYMETHYLCELLULOSE OPHTH DROPS EACHEYE PRN ×2 (16:54→22:46)
[2020-01-17] MEDS: KETOROLAC 15 MG/ML VIAL IVP SCH ×3 (00:05→11:52)
[2020-01-17] MEDS: PANTOPRAZOLE 40 MG VIAL IVP SCH (05:36)
[2020-01-17 08:20] VITALS: BP 140/67
[2020-01-17] MEDS: PREGABALIN 25 MG CAPSULE PO SCH (09:16)
[2020-01-17] MEDS: ENOXAPARIN 40 MG/0.4 ML SYRINGE SUBQ SCH (09:16)
[2020-01-17] MEDS: CARBOXYMETHYLCELLULOSE OPHTH DROPS EACHEYE PRN (09:22)
--- NOTE | 2020-01-17 13:08 | Discharge Plan ---
Discharge Plan Problem Reviewed?: Yes Disposition: Home, Self Care Condition: Good Prescriptions: oxyCODONE [Roxicodone] 5 mg PO Q4HR PRN #7 tablet PRN Reason: Pain methocarbamoL [Robaxin] 500 mg PO Q6HR PRN #30 tablet PRN Reason: Spasms Pregabalin [Lyrica] 75 mg PO BID #14 capsule Diet: Regular Activity Restrictions: 10 pound lifing limit Shower Restrictions: No Driving Restrictions: Yes (After follow up) Assistance Devices: Walker (If desired) Assessment: Right Colon Cancer - Recovering as expected after right kim colectomy No Smoking: If you smoke, Please STOP! Call for help. Follow-up with: JENNY PATEL PA [Primary Care Provider] - Jakob Norton MD [Provider Admit Priv/Credential] -
--- NOTE | 2020-01-17 13:12 | DISCHARGE SUMMARY ---
"Discharge Summary Admit Date: 01/15/20 Discharge Date: 01/17/20 Discharging Provider: Cierra Code Status: Attempt Resuscitation Condition at Discharge: Good Discharge Disposition: 01 Home, Self Care - DIAGNOSES Admission Diagnoses: Right Colon Cancer Discharge Diagnoses with Status of Each Condition: Status post laparoscopic right kim colectomy - HPI History of Present Illness: Very pleasant and active 79 year old lady who was diagnosed with anemia recently and had a colonoscopy. She was diagnosed with right colon cancer. CT scan did not show any evidence of distant disease. The lesion was noted to be nearly obstructing. After appropriate workup, the patient presented on the date of admission for laparoscopic right hemicolectomy. - CONSULTS | PROCEDURES Consultations: None Procedures: Laparoscopic right hemicolectomy - HOSPITAL COURSE Hospital Course: The procedure was uneventful (see separate dictation) and the patient was admitted to med/surg for convalescence and supportive care. On post op day 1 she was walking the halls will a walker. By post op day 2 she was tolerating a regular diet and have regular bowel movements. Minimal narcotic pain medication was required. She is discharged to her home in the care of her daughter. She will observe a 10 pound lifting restriction and not drive a vehicle until after her follow up appointment. We will see her in the office in 2 weeks. - ALLERGIES Allergies/Adverse Reactions: Allergies Allergy/AdvReac Type Severity Reaction Status Date / Time No Known Drug Allergies Allergy Verified 12/04/19 14:56 - MEDICATIONS Home Medications: Ambulatory Orders Medication Instructions Recorded Confirmed Magnesium Citrate 250 mg PO DAILY 12/28/19 01/15/20 Omeprazole 20 mg PO DAILY 12/28/19 01/15/20 ALPRAZolam [Alprazolam] 0.25 mg PO TID 01/09/20 01/15/20 Acetaminophen [Tylenol Extra 1 - 2 tab PO Q4HR PRN 01/10/20 01/15/20 Strength] Ferrous Sulfate 325 mg PO DAILY 01/10/20 01/15/20 Acetaminophen [Tylenol] 650 mg PO Q4HR PRN tablet 01/17/20 Carboxymethylcellulose 1% Opht 1 drops EACHEYE Q4HR PRN drops 01/17/20 [Refresh 1% Ophth Drops] Pregabalin [Lyrica] 75 mg PO BID #14 capsule 01/17/20 methocarbamoL [Robaxin] 500 mg PO Q6HR PRN #30 tablet 01/17/20 oxyCODONE [Roxicodone] 5 mg PO Q4HR PRN #7 tablet 01/17/20 - PHYSICAL EXAM AT DISCHARGE General Appearance: positive: No acute distress, Alert Eyes Bilateral: positive: Normal inspection, PERRL, EOMI ENT: positive: ENT inspection nml, Pharynx nml, No signs of dehydration Neck: positive: Nml inspection, Thyroid nml, No JVD, Trachea midline Respiratory: positive: Chest non-tender, No respiratory distress, Breath sounds nml Cardiovascular: positive: Regular rate & rhythm, No murmur, No gallop Peripheral Pulses: positive: 1+ Abdomen: positive: Other (Wounds are all clean and dry and well approximated. Left lower quadrant drain is scant and is removed at the bedside. ) Back: positive: Nml inspection Extremities: positive: Non-tender, Full ROM Neurologic/Psychiatric: positive: Oriented x3 - LABS Result Diagrams: 01/16/20 05:05 01/16/20 05:05 - QUALITY (Female Hip Fx Only) Was patient sent home on osteoporosis medication?: No - FOLLOW UP Follow Up: 2 weeks at [facility] - TIME SPENT Time Spent in Discharge (Minutes): 20"
== END 2020-01-17 13:40 | disposition home or self-care (01) | DRG 330 ==
LOC: MS2 10:47
PROVIDERS: ADMIT Surgery; ATTEND Surgery
PROC: 0DBV4ZZ Excision of Mesentery, Percutaneous Endoscopic Approach (ICD-10-PCS; 2020-01-15)
PROC: 0DTF4ZZ Resection of Right Large Intestine, Percutaneous Endoscopic Approach (ICD-10-PCS; principal; 2020-01-15 11:45)
DX: C18.2 Malignant neoplasm of ascending colon (principal); C77.2 Secondary and unspecified malignant neoplasm of intra-abdominal lymph nodes; C78.6 Secondary malignant neoplasm of retroperitoneum and peritoneum; E11.9 Type 2 diabetes mellitus without complications; K21.9 Gastro-esophageal reflux disease without esophagitis; G89.29 Other chronic pain; M54.9 Dorsalgia, unspecified; Z85.3 Personal history of malignant neoplasm of breast; Z90.13 Acquired absence of bilateral breasts and nipples; Z87.891 Personal history of nicotine dependence; K66.0 Peritoneal adhesions (postprocedural) (postinfection)
CPT/HCPCS: 36415; 80048; 85025; A9270; J0131; J0690; J1170; J1650; J7120

== ENCOUNTER 2020-02-01 10:07 | Outpatient (CLI) | payer MEDICARE | END 2020-02-01 10:08 | disposition home or self-care (01) | LOC: LAB 10:07 | PROVIDERS: ATTEND Surgery | DX: Z01.818 Encounter for other preprocedural examination (principal); C18.2 Malignant neoplasm of ascending colon; Z20.828 Contact with and (suspected) exposure to other viral communicable diseases ==

== ENCOUNTER 2020-02-05 12:20 | Day surgery (SDC) | payer MEDICARE ==
[2020-02-05] MEDS ORDERED: fentaNYL 100 MCG/2 ML VIAL IVP ONE (12:21)
[2020-02-05] MEDS ORDERED: PROPOFOL 200 MG/20 ML VIAL IVP ONE (12:21)
[2020-02-05] MEDS ORDERED: LIDOCAINE-MPF 2% 5 ML VIAL IM ONE (12:21)
[2020-02-05] MEDS ORDERED: LACTATED RINGERS 1,000 ML IV ONE ×2 (12:34→15:12)
[2020-02-05] MEDS ORDERED: LIDOCAINE 1%-EPI 1:100000 20 ML MDV ONE (12:57)
[2020-02-05] MEDS ORDERED: LIDOCAINE 1%-EPI 1:100000 20 ML MDV SUBQ ONE ×2 (12:58→14:59)
[2020-02-05] MEDS ORDERED: BUPIVACAINE 0.5% PF 30 ML VIAL INFIL ONE ×2 (12:59→14:59)
[2020-02-05] MEDS ORDERED: BUPIVACAINE 0.5% PF 30 ML VIAL ONE (13:01)
--- NOTE | 2020-02-05 13:54 | ANESTHESIA ---
Pre-Anesthesia VS, & Labs - Diagnosis colon cancer - Procedure port placement Vital Signs: Temp Pulse Resp BP Pulse Ox 36.8 C 92 15 151/87 H 98 02/05/20 12:34 02/05/20 12:34 02/05/20 12:34 02/05/20 12:34 02/05/20 12:34 Height: 5 ft 5 in Weight (kg): 77 kg Body Mass Index: 28.2 BMI Classification: Overweight - NPO Last Fluid Intake: 0900 4oz clear liquids - Is Patient ?: No Home Medications and Allergies Home Medications: Ambulatory Orders Multivitamin 1 each PO DAILY 02/01/20 Omeprazole 20 mg PO DAILY 12/28/19 ALPRAZolam [Alprazolam] 0.25 mg PO TID 01/09/20 Multivitamin 1 each PO DAILY 02/01/20 Allergies/Adverse Reactions: Allergies Allergy/AdvReac Type Severity Reaction Status Date / Time No Known Drug Allergies Allergy Verified 01/29/20 12:02 Anes History & Medical History - Anesthetic History Anesthesia Complications: reports: No previous complications - Medical History Cardiovascular: reports: None Pulmonary: reports: None Gastrointestinal: reports: GERD Urinary: reports: None Musculoskeletal: reports: Chronic back pain Endocrine/Autoimmune: reports: Type 2 diabetes (diet controlled) Blood Disorders: reports: None Skin: reports: Psoriasis Smoking Status: Never smoker Psychosocial: reports: No issues indicated History of Cancer?: Yes (breast cancer (chemo/radiation) colon cancer) - Surgical History General: Colonoscopy, EGD, Other (colon resection) Eyes Ears Nose Throat (EENT): Cataracts, Detached retina repair Gynecologic: Hysterectomy, Other Exam General: Alert, Oriented x3, Cooperative, No acute distress Dental: WNL Mouth Openin Fingerbreadth Neck Mobility: Normal Mallampati classification: II Thyromental Distance: 4-6 cm Mental/Cognitive Status: Alert/Oriented X3, Normal for patient Plan Anesthesia Type: MAC Consent for Procedure(s) Verified and Reviewed: Yes Code Status: Attempt Resuscitation ASA classification: 2-Mild systemic disease Is this case an emergency?: No
--- NOTE | 2020-02-05 15:08 | OPERATIVE REPORT ---
Operative Report - General Procedure Date: 02/05/20 Planned Procedure: Left subclavian port placement Pre-Op Diagnosis: Colon cancer Procedure Performed: Left subclavian port placement Post Op Diagnosis: Colon cancer - Procedure Note Primary Surgeon: Cierra Anesthesia Provider: BLAYNE Rodgers Anesthesia Technique: MAC Estimated Blood Loss (mL): 5 Indications: Facilitation of chemotherapy Findings: Catheter in good position in the superior vena cava Complications: None apparent - Other Other Information/Narrative: After obtaining informed consent, the patient is brought to the operating room and placed in supine position on the operating table. Following successful induction of sedation with monitored anesthesia care and appropriate padding of all bony prominences, the left chest and neck were prepped and draped in the standard surgical fashion. A timeout was held per scope protocol. All elements of the surgical safety checklist were followed before, during, and after the procedure. Following infiltration with local anesthetic to create a field block, the left subclavian vein was accessed in the deltopectoral groove. The J-wire was gently placed into the vein. Fluoroscopy was used to confirm the position of the wire and in the subclavian vein. We anesthetized the existing healed scar in the area around it for placement of the port itself. An incision was created here and carried down through the skin and subcutaneous tissue. A pocket was created with blunt dissection. The port tubing was attached to the tunneling device and passed from the access site of the vein into the pocket. It was trimmed to an appropriate length and the port attached. The port was sewn into place in the pocket. The dilator and introducer were then passed over the J-wire that was in the subclavian vein. The J-wire and dilator were removed leaving only the introducer. The tubing was then passed through the introducer and the introducer cracked and removed per copyholder's directions. The port was then checked for function and flushed and jaxon easily. Additional local anesthetic was applied to the chest wall. The port pocket was closed with interrupted Vicryl sutures and Monocryl stitches were placed in both skin incision sites. All sponge, needle, and instrument counts were correct at the conclusion of the case. Chest x-ray in the postanesthesia care unit revealed the port in good position in the superior vena cava without evidence of pneumothorax.
--- NOTE | 2020-02-05 15:41 | XRAY Report ---
PROCEDURE: Chest for Line Placement INDICATIONS: Left port placement TECHNIQUE: One view of the chest was acquired. COMPARISON: None FINDINGS: Surgical changes and devices: Left chest wall Port-A-Cath. Left axillary surgical clips. Bilateral br east implants.. Lungs and pleura: No pleural effusions or pneumothorax. Lungs are clear. Mediastinum: Mediastinal contours appear normal. Heart size is normal. Bones and chest wall: No suspicious bony lesions. Overlying soft tissues appear unremarkable. IMPRESSION: No acute cardiopulmonary disease process. Reviewed by: Stephanie Chavez MD, PhD on 02/05/2020 3:39 PM PDT Approved by: Stephanie Chavez MD, PhD on 02/05/2020 3:39 PM PDT Station ID: [id number]
[2020-02-05 15:49] VITALS: BP 155/57
--- NOTE | 2020-02-05 16:32 | ANESTHESIA POST OP EVALUATION ---
Anesthesia Post Eval - Post Anesthesia Eval Vitals: Last Vital Signs Temp 37.0 C 02/05/20 15:48 Pulse 91 02/05/20 15:48 Resp 26 H 02/05/20 15:48 BP 155/57 H 02/05/20 15:48 Pulse Ox 100 02/05/20 15:48 CV Function Including HR & BP: positive: Stable Pain Control: positive: Satisfactory Nausea & Vomiting: positive: Negative Mental Status: positive: Baseline Respiratory Status: Airway Patent Hydration Status: Satisfactory Anesthesia Complications: positive: None
--- NOTE | 2020-02-05 16:58 | XRAY Report ---
PROCEDURE: OR C-Arm Procedure INDICATIONS: PORT PLACEMENT TECHNIQUE: Fluoroscopy for port placement. A single fluoroscopic spot image was saved. COMPARISON: None. FINDINGS: A single fluoroscopic spot image demonstrates a wire projecting over the right chest.. IMPRESSION: Fluoroscopy provided for port placement. Reviewed by: Melania Briones MD on 02/05/2020 3:56 PM GARY Approved by: Melania Briones MD on 02/05/2020 3:56 PM AKROHIT Station ID: [id number]
== END 2020-02-05 12:21 | disposition home or self-care (01) ==
LOC: SDS 12:20
PROVIDERS: ATTEND Surgery
PROC: 02HV33Z Insertion of Infusion Device into Superior Vena Cava, Percutaneous Approach (ICD-10-PCS; principal; 2020-02-05 13:45)
DX: C18.2 Malignant neoplasm of ascending colon (principal); E11.9 Type 2 diabetes mellitus without complications; Z85.3 Personal history of malignant neoplasm of breast
CPT/HCPCS: 36561; 71045; C1788; J7120

== ENCOUNTER 2020-02-08 07:17 | Outpatient (CLI) | payer MEDICARE ==
[2020-02-08] MEDS ORDERED: GADOBUTROL 10 MMOL/10 ML VIAL ONE (07:43)
[2020-02-08] MEDS ORDERED: IOVERSOL 320 100 ML VIAL IVP ONE (08:24)
[2020-02-08] MEDS ORDERED: GADOBUTROL 10 MMOL/10 ML VIAL IVP ONE (09:34)
--- NOTE | 2020-02-08 09:39 | CT Report ---
PROCEDURE: CHEST W INDICATIONS: COLON CA STAGING, LIVER NODULE CONTRAST: IV CONTRAST: Optiray 320 ml: 100 PO CONTRAST: *NO PO CONTRAST TECHNIQUE: After the administration of intravenous contrast, 5 mm thick sections acquired from the pulmonary api tania to the posterior costophrenic angles. 7 mm thick coronal MIP reformats were acquired. For radia tion dose reduction, the following was used: automated exposure control, adjustment of mA and/or kV according to patient size. COMPARISON: None. FINDINGS: Image quality: Excellent. Lungs and pleura: Approximately 5 mm pleural-based nodule in the inferolateral right lower lobe is mo st likely atelectasis. 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 The lung s are otherwise clear. No pleural effusion or other significant pleural abnormality. Mediastinum: Normal heart size. No pericardial effusion. Normal caliber thoracic aorta and main pulmo nary trunk with aortic and coronary atherosclerosis is noted. No threshold mediastinal or hilar lymph node. Bones and chest wall: No suspicious bony lesions. No vertebral body compression fractures. No axil josse or supraclavicular adenopathy by size criteria. Thyroid gland is normal.. Bilateral breast imp lants noted. Left chest wall central venous port terminates in the SVC. Abdomen: Visualized upper abdominal solid organs appear normal. Upper abdominal bowel loops are nor mal in caliber. IMPRESSION: No findings of metastatic disease in the chest. Reviewed by: Erick Urbina MD on 02/08/2020 9:37 AM PDT Approved by: Erick Urbina MD on 02/08/2020 9:37 AM PDT Station ID: [id number]
--- NOTE | 2020-02-08 14:00 | MRI Report ---
PROCEDURE: Abdomen W/WO INDICATIONS: COLON CA STAGING, LIVER NODULE CONTRAST: IV CONTRAST: Gadavist ml: 8 TECHNIQUE: Coronal ultra fast SE, axial 2D spoiled GE in- and [id number]; axial breath-hold T2 fast SE. Dynam ic axial ultra fast GE during the administration of contrast; post-contrast coronal ultra fast GE or 2D spoiled GE with fat saturation from the hepatic dome to the iliac crests. Optional diffusion weig hted imaging and ADC may be performed. COMPARISON: 12/28/2019 FINDINGS: Image quality: Adequate. There is motion on multiple sequences.. Lung bases: No basal pleural effusions. Heart size is normal. Very small hiatal hernia. Intact sali ne breast implants. Solid organs: Liver demonstrates 2 nonenhancing simple cysts. There is geographi c hyperenhancement of segment posteriorly in the arterial phase. No suspicious arterially enhancin g lesion. The spleen is normal in size and enhancement. Gallbladder appears normal. Biliary system is non dil ated. Pancreas is normal in morphology. No adrenal nodules. Both kidneys demonstrate normal size a nd enhancement, without hydronephrosis. Nodes and vessels: No retroperitoneal or mesenteric adenopathy by size criteria. Aorta and inferior vena cava are normal in size. Bowel and peritoneum: Unenhanced bowel loops are normal in caliber. Diverticula present in the desce nding colon. No free fluid. Bones and soft tissues: No ventral hernias. Bone marrow is normal in overall signal. IMPRESSION: 1. No metastatic disease in the liver. 2. Simple liver cysts. 3. No visible retroperitoneal or mesenteric adenopathy. 4. Very small hiatal hernia. Reviewed by: Melania Briones MD on 02/08/2020 12:59 PM AKDT Approved by: Melania Briones MD on 02/08/2020 12:59 PM AKDT Station ID: [id number]
== END 2020-02-08 07:18 | disposition home or self-care (01) ==
LOC: DI 07:17
PROVIDERS: ATTEND Internal Medicine Hematology & Oncology
DX: C18.6 Malignant neoplasm of descending colon (principal); K76.89 Other specified diseases of liver; K44.9 Diaphragmatic hernia without obstruction or gangrene
CPT/HCPCS: 71260; 74183; A9585; Q9967

== ENCOUNTER 2020-03-27 19:25 | Emergency (ER) | payer MEDICARE, MEDICAID ==
--- NOTE | 2020-03-27 20:26 | ED Physician Documentation ---
History of Present Illness - Stated complaint Stated Complaint: RAPID HEART RATE - Chief complaint Chief Complaint: Cardiac - History obtained from History obtained from: Patient - History of Present Illness Timing: Unknown Pain level max: 0 Pain level now: 0 - Additonal information Additional information: patient was at a scheduled appointment earlier today and was told her heart rate was fast (cannot recall how fast, only that it "was above one-hundred" (per patient)). She denies feeling palpitations, lightheaded, dyspneic. She has been feeling "jittery" recently which she thinks might be from new medication (olanzepine). She was advised to go to ED if her heart rate stayed above 100 into the afternoon/evening, which it has. Review of Systems Constitutional: denies: Fever, Chills, Sweats Cardiac: denies: Chest pain / pressure, Palpitations Respiratory: denies: Dyspnea, Cough GI: denies: Abdominal Pain PD PAST MEDICAL HISTORY - Past Medical History Cardiovascular: None Respiratory: None Endocrine/Autoimmune: Type 2 diabetes (diet controlled) GI: GERD : None HEENT: Other Psych: Depression, Anxiety Musculoskeletal: Chronic back pain Derm: Psoriasis - Past Surgical History General: Colonoscopy, EGD, Other /HOT DIPPER: Hysterectomy, Other HEENT: Cataracts, Detached retina repair - Present Medications Home Medications: Ambulatory Orders Medication Instructions Recorded Confirmed Omeprazole 20 mg PO DAILY 12/28/19 03/18/20 Multivitamin 2 each PO DAILY 02/01/20 03/18/20 Lidocaine/Prilocain 2.5% Cream 30 applic TOP DAILY PRN #1 tube 02/05/20 03/18/20 [Emla 2.5% Cream] Alprazolam [Xanax] 1 tab PO DAILY PRN 02/19/20 03/18/20 [place]-3/Dha/Epa/Fish Oil [Fish Oil 1 cap PO DAILY 02/19/20 03/18/20 1,000 mg Softgel] Ondansetron HCl [Zofran] 4 mg PO Q6HR PRN #30 tab 02/19/20 03/18/20 Prochlorperazine Maleate 10 mg PO Q6HR PRN 02/19/20 03/18/20 [Compazine] Magnesium 250 mg PO DAILY 03/04/20 03/18/20 Vit D3+K2 1 drops PO DAILY 03/04/20 03/18/20 OLANZapine [Olanzapine] 5 mg PO HS 03/18/20 03/18/20 LORazepam [Ativan] 0.5 mg PO Q6H PRN #14 tablet 03/28/20 - Allergies Allergies/Adverse Reactions: Allergies Allergy/AdvReac Type Severity Reaction Status Date / Time No Known Drug Allergies Allergy Verified 03/27/20 19:38 - Social History Does the pt smoke?: No Smoking Status: Never smoker Does the pt have substance abuse?: No PD ED PE NORMAL - Vitals Vital signs reviewed: Yes - General General: Alert and oriented X 3, No acute distress, Well developed/nourished - HEENT HEENT: Moist mucous membranes - Neck Neck: Supple, no meningeal sign - Cardiac Cardiac: No murmur - Respiratory Respiratory: No respiratory distress, Clear bilaterally - Abdomen Abdomen: Soft, Non tender - Derm Derm: Normal color, Warm and dry - Extremities Extremities: No edema PD ED PE EXPANDED - Cardiac Cardiac: Tachy, Regular Rhythm Results - Vitals Vitals: Vital Signs - 24 hr 03/27/20 03/27/20 03/28/20 19:31 21:22 00:37 Temperature 36.4 C L 37.0 C Heart Rate 133 H 105 H 102 H Respiratory 18 20 18 Rate Blood Pressure 155/87 H 150/76 H 150/66 H O2 Saturation 99 100 100 Oxygen O2 Source Room air - EKG (time done) No standard instances Rate: Rate (enter#) (134), Tachy Rhythm: Sinus tachycardia, SLOAN [place]: Normal Intervals: Normal GA QRS: Normal Ischemia: Normal ST segments - Labs Labs: Laboratory Tests 03/27/20 03/27/20 03/27/20 21:00 21:00 21:00 WBC 13.1 H RBC 4.36 Hgb 12.8 Hct 39.2 MCV 89.9 MCH 29.4 MCHC 32.7 RDW 26.5 H Plt Count 163 MPV 9.1 Neut # (Auto) 10.6 H Lymph # (Auto) 1.8 [place] # (Auto) 0.3 Eos # (Auto) 0.2 Baso # (Auto) 0.1 Absolute Nucleated RBC 0.00 Nucleated RBC % 0.0 Manual Slide Review Indicated Platelet Estimate NORMAL (130-450,000) Platelet Morphology NORMAL APPEARANCE RBC Morph Micro Appear 1+ OVALOCYTES Sodium 140 Potassium 4.2 Chloride 100 L Carbon Dioxide 23 Anion Gap 17.0 H BUN 23 H Creatinine 0.8 Estimated GFR (MDRD) 69 L Glucose 150 H Calcium 8.9 Total Bilirubin 0.6 AST 34 ALT 25 Alkaline Phosphatase 90 Troponin I High Sens 8.6 Total Protein 6.6 L Albumin 3.5 Globulin 3.1 Albumin/Globulin Ratio 1.1 Lipase 33 TSH 03/27/20 21:00 WBC RBC Hgb Hct MCV MCH MCHC RDW Plt Count MPV Neut # (Auto) Lymph # (Auto) [place] # (Auto) Eos # (Auto) Baso # (Auto) Absolute Nucleated RBC Nucleated RBC % Manual Slide Review Platelet Estimate Platelet Morphology RBC Morph Micro Appear Sodium Potassium Chloride Carbon Dioxide Anion Gap BUN Creatinine Estimated GFR (MDRD) Glucose Calcium Total Bilirubin AST ALT Alkaline Phosphatase Troponin I High Sens Total Protein Albumin Globulin Albumin/Globulin Ratio Lipase TSH 9.68 H - Rads (name of study) chest xray Radiology: Prelim report reviewed, See rad report PD MEDICAL DECISION MAKING - ED course Complexity details: reviewed results, re-evaluated patient, considered differential, d/w patient ED course: reassuring test results and her tachycardia resolved after IV fluids and 0.5mg IV lorazepam. Mild leukocytosis but patient says she recently received an injection to counter a low WBC. Departure - Departure Disposition: 01 Home, Self Care Clinical Impression: Tachycardia Condition: Good Instructions: ED Palpitations Follow-Up: JENNY PATEL PA [Primary Care Provider] - Prescriptions: LORazepam [Ativan] 0.5 mg PO Q6H PRN #14 tablet PRN Reason: Anxiety Comments: Your TSH (thyroid stimulating hormone) level was high today; this might require further tests, but your primary care provider can determine this. Follow up with your primary care provider to discuss today's results. Discharge Date/Time: 03/28/20 01:02
--- NOTE | 2020-03-27 20:51 | XRAY Report ---
PROCEDURE: Chest 1 View X-Ray INDICATIONS: Chest Pain TECHNIQUE: One view of the chest was acquired. COMPARISON: Single view the chest dated 02/05/2020 FINDINGS: Surgical changes and devices: Left Port-A-Cath is unchanged. Surgical clips are redemonstrated at the left axilla. Lungs and pleura: No pleural effusions or pneumothorax. Lungs are clear. Mediastinum: Mediastinal contours appear normal. Heart size is normal. Bones and chest wall: No suspicious bony lesions. Overlying soft tissues appear unremarkable. IMPRESSION: No acute cardiopulmonary findings. Reviewed by: Zulema Clemons MD on 03/27/2020 8:50 PM PST Approved by: Zulema Clemons MD on 03/27/2020 8:50 PM PST Station ID: [id number]
[2020-03-27 21:11] LABS: BASOPHILS # (AUTO) 0.1 10^3/uL (0.0-0.1); BASOPHILS % (AUTO) 0.6 %; EOSINOPHILS # (AUTO) 0.2 10^3/uL (0.0-0.7); EOSINOPHILS % (AUTO) 1.6 %; HGB - HEMOGLOBIN 12.8 g/dL (12.0-16.0); LYMPHOCYTES # (AUTO) 1.8 10^3/uL (1.5-3.5); MEAN CORPUSCULAR HEMOGLOBIN 29.4 pg (27.0-31.0); MEAN CORPUSCULAR HGB CONC 32.7 g/dL (32.0-36.0); MEAN CORPUSCULAR VOLUME 89.9 fL (81.0-99.0); MEAN PLATELET VOLUME 9.1 fL (7.9-10.8); MONOCYTES # (AUTO) 0.3 10^3/uL (0.0-1.0); MONOCYTES % (AUTO) 2.2 %; NEUTROPHILS # (AUTO) 10.6 10^3/uL (1.5-6.6); NEUTROPHILS % (AUTO) 81.1 %; PLT - PLATELET COUNT 163 10^3/uL (130-450); RED BLOOD COUNT 4.36 10^6/uL (4.20-5.40); RED CELL DISTRIBUTION WIDTH 26.5 % (12.0-15.0); WHITE BLOOD COUNT 13.1 x10^3/uL (4.8-10.8)
[2020-03-27 21:26] LABS: ALBUMIN 3.5 g/dL (3.2-5.5); ALBUMIN/GLOBULIN RATIO 1.1 (1.0-2.2); BILIRUBIN,TOTAL 0.6 mg/dL (0.2-1.0); CALCIUM 8.9 mg/dL (8.5-10.3); CREATININE 0.8 mg/dL (0.4-1.0); TOTAL PROTEIN 6.6 g/dL (6.7-8.2)
[2020-03-27] MEDS ORDERED: SODIUM CHLORIDE 0.9% 1,000 ML IV STA (21:45)
[2020-03-27] MEDS ORDERED: LORazepam 2 MG/ML VIAL IVP STA (21:45)
[2020-03-27 21:54] LABS: PLATELET ESTIMATE, MANUAL NORMAL (130-450,000) (NORMAL); PLATELET MORPHOLOGY NORMAL APPEARANCE (NORMAL)
[2020-03-28 00:38] VITALS: BP 150/66
== END 2020-03-28 01:02 | disposition home or self-care (01) ==
LOC: ED 19:25
DX: R00.0 Tachycardia, unspecified (principal); E11.9 Type 2 diabetes mellitus without complications; R94.6 Abnormal results of thyroid function studies
CPT/HCPCS: 36415; 71045; 80053; 83690; 84443; 84484; 85025; 93005; 96374; 99284; J2060

== ENCOUNTER 2020-06-27 12:44 | Outpatient (CLI) | payer MEDICARE, MEDICAID ==
[2020-06-27] MEDS ORDERED: IOPAMIDOL-300 50 ML VIAL ONE (13:17)
[2020-06-27] MEDS ORDERED: IOVERSOL 320 100 ML VIAL IVP ONE ×2 (13:17→17:00)
--- NOTE | 2020-06-27 16:15 | CT Report ---
PROCEDURE: CHEST W INDICATIONS: COLON CA CONTRAST: IV CONTRAST: Optiray 320 ml: 100 PO CONTRAST: Isovue 300 ml50 TECHNIQUE: After the administration of intravenous contrast, 5 mm thick sections acquired from the pulmonary api tania to the posterior costophrenic angles. 7 mm thick coronal MIP reformats were acquired. For radia tion dose reduction, the following was used: automated exposure control, adjustment of mA and/or kV according to patient size. COMPARISON: Chest CT 02/08/2020 FINDINGS: Image quality: Excellent. Lungs and pleura: Small consolidation dependently along the cranial aspect of the right major fissur e subpleural fibrotic changes anteriorly in the left midlung/lingula. The previously mentioned approx imately 5 mm subpleural nodule in the lateral right costophrenic sulcus has decreased in prominence, likely scar. There is adjacent linear subpleural atelectatic change more posteriorly. No acute air sp ish opacities. No pleural effusions or pneumothorax. Central and peripheral airways are patent and normal in caliber. Mediastinum: Heart size is normal. No pericardial effusion. No mediastinal or hilar adenopathy by size criteria. Thoracic aorta and central pulmonary arteries are normal in size. Mild aortic arch at herosclerosis. Esophagus is normal in caliber. Contrast is present within the esophagus and in the sm all hiatal hernia. Bones and chest wall: Intact bilateral prepectoral saline breast implants. Left chest Mediport in pl ish. The tip is in the upper SVC at the azygos/SVC junction. Surgical changes of left axillary dissec tion. No suspicious bony lesions. No vertebral body compression fractures. No axillary or supraclav icular adenopathy by size criteria. Thyroid gland is within normal limits.. Abdomen: Please see accompanying CT abdomen pelvis report. IMPRESSION: 1. No evidence of new lung nodule or suspicious finding to suggest metastatic disease in the chest. 2. Probable right upper lobe atelectatic changes and right lateral lower lung scarring. 3. Changes of probable remote left breast cancer with minor left lung subpleural radiation fibrosis a nd left axillary surgical clips. 4. Small hiatal hernia. Reviewed by: Melania Briones MD on 06/27/2020 4:13 PM PST Approved by: Melania Briones MD on 06/27/2020 4:13 PM PST Station ID: [id number]
[2020-06-27] MEDS ORDERED: IOPAMIDOL-300 50 ML VIAL PO ONE (17:00)
--- NOTE | 2020-06-27 17:03 | CT Report ---
PROCEDURE: Abdomen/Pelvis W INDICATIONS: COLON CA CONTRAST: IV CONTRAST: Optiray 320 ml: 100 PO CONTRAST: Isovue 300 ml50 TECHNIQUE: After the administration of oral and IV contrast, 5 mm thick sections acquired from the diaphragms to the symphysis. 5 mm thick coronal and sagittal reformats were acquired. For radiation dose reducti on, the following was used: automated exposure control, adjustment of mA and/or kV according to juanito ent size. COMPARISON: 12/28/2019 FINDINGS: Image quality: Excellent. ABDOMEN: Lung bases: Please see accompanying chest CT report including addendum. Solid organs: The liver is mildly diffusely hypodense. Small thin-walled nonenhancing hypodensities are seen in the central aspect of segment IV and lateral aspect of segment V, previously characterize d to be cysts. No new enhancing lesion. The gallbladder is decompressed and may contain a punctate, dependent hyperdense stone. The spleen, p ancreas, adrenal glands, and kidneys are normal. Peritoneum and bowel: Since the prior study, there has been interval partial right hemicolectomy. Th e proximal transverse colon is in spasm/decompressed. Diverticula without inflammation are seen in th e descending and sigmoid colon. Bowel loops demonstrate normal wall thickness and caliber. No free f luid or air. Nodes and vessels: There are tiny indeterminant right lower quadrant mesenteric lymph nodes which ar e smaller and less numerous than the large one seen previously. No retroperitoneal or mesenteric jodi opathy by size criteria. Aorta and inferior vena cava are normal in size. Retroaortic left renal vei n. Miscellaneous: No ventral hernias. PELVIS: Genitourinary: Bladder wall thickness is normal. Miscellaneous: No inguinal hernias or adenopathy. Bones: No suspicious bony lesions. Degenerative disc and endplate change in the lower lumbar spine. No vertebral body compression fractures. IMPRESSION: 1. Interval resection of a portion of the proximal colon. 2. Decreased size and number of small adjacent right lower quadrant lymph nodes. 3. Mild hepatic steatosis without evidence of metastatic disease by CT scan. 4. Sigmoid and descending colon diverticulosis. Reviewed by: Melania Briones MD on 06/27/2020 5:02 PM PST Approved by: Melania Briones MD on 06/27/2020 5:02 PM PST Station ID: [id number]
== END 2020-06-27 12:45 | disposition home or self-care (01) ==
LOC: DI 12:44
PROVIDERS: ATTEND Physician Assistant
DX: C18.2 Malignant neoplasm of ascending colon (principal); K76.0 Fatty (change of) liver, not elsewhere classified; K57.30 Diverticulosis of large intestine without perforation or abscess without bleeding; K44.9 Diaphragmatic hernia without obstruction or gangrene
CPT/HCPCS: 71260; 74177; Q9967

== ENCOUNTER 2020-11-25 09:53 | Outpatient (CLI) | payer MEDICARE, MEDICAID ==
[2020-11-25 10:02] LABS: HCT - HEMATOCRIT 40.2 % (37.0-47.0); HGB - HEMOGLOBIN 13.3 g/dL (12.0-16.0); MEAN CORPUSCULAR HGB CONC 33.1 g/dL (32.0-36.0); MEAN CORPUSCULAR VOLUME 99.8 fL (81.0-99.0); NEUTROPHILS # (AUTO) 2.2 10^3/uL (1.5-6.6); NEUTROPHILS % (AUTO) 44.5 %; RED BLOOD COUNT 4.03 10^6/uL (4.20-5.40); RED CELL DISTRIBUTION WIDTH 13.6 % (12.0-15.0); WHITE BLOOD COUNT 4.9 x10^3/uL (4.8-10.8)
[2020-11-25] MEDS ORDERED: IOVERSOL 320 100 ML VIAL IVP ONE ×2 (10:06→11:36)
[2020-11-25] MEDS ORDERED: IOVERSOL 320 50 ML VIAL ONE (10:06)
[2020-11-25 10:14] LABS: ALBUMIN/GLOBULIN RATIO 1.3 (1.0-2.2); BILIRUBIN,TOTAL 0.9 mg/dL (0.2-1.0); CALCIUM 9.1 mg/dL (8.5-10.3); CREATININE 0.7 mg/dL (0.4-1.0); TOTAL PROTEIN 7.1 g/dL (6.7-8.2)
[2020-11-25] MEDS ORDERED: IOPAMIDOL-300 50 ML VIAL PO ONE (11:36)
--- NOTE | 2020-11-25 13:20 | CT Report ---
PROCEDURE: CHEST W INDICATIONS: COLON CA CONTRAST: IV CONTRAST: Optiray 320 ml: 100 PO CONTRAST: Isovue 300 ml50 TECHNIQUE: After the administration of intravenous contrast, 5 mm thick sections acquired from the pulmonary api tania to the posterior costophrenic angles. 7 mm thick coronal MIP reformats were acquired. For radia tion dose reduction, the following was used: automated exposure control, adjustment of mA and/or kV according to patient size. COMPARISON: 06/27/2020 FINDINGS: Image quality: Excellent. Lungs and pleura: No acute air space opacities. Chronic thickening of the apical portion of the righ t major fissure. Small area of chronic subpleural fibrosis is present within the anterolateral lingul a. Punctate calcified granuloma at the right lung apex. No change to subpleural scarring at the right lateral costophrenic sulcus. No suspicious nodules or masses. No pleural effusions or pneumothorax. Central and peripheral airways are patent and normal in caliber. Mediastinum: Heart size is normal. No pericardial effusion. No mediastinal or hilar adenopathy by size criteria. Mild aortic arch calcification. Thoracic aorta and central pulmonary arteries are nor mal in size. Esophagus is normal in caliber. There is small hiatal hernia. Bones and chest wall: Left chest Mediport present. Surgical clips in the left axilla. Intact bilater al breast implants. No suspicious bony lesions. No vertebral body compression fractures. No axillar y or supraclavicular adenopathy by size criteria. The thyroid gland is partially imaged.. Abdomen: Visualized upper abdominal solid organs appear normal. Upper abdominal bowel loops are nor mal in caliber. Retroaortic left renal vein, normal variant. IMPRESSION: 1. No evidence of metastatic disease in the chest. 2. Stable findings in the lungs. 3. Postsurgical changes in the left axilla and anterior chest wall. Reviewed by: Melania Briones MD on 11/25/2020 1:19 PM PDT Approved by: Melania Briones MD on 11/25/2020 1:19 PM PDT Station ID: [id number]
--- NOTE | 2020-11-25 13:39 | CT Report ---
PROCEDURE: Abdomen/Pelvis W INDICATIONS: COLON CA CONTRAST: IV CONTRAST: Optiray 320 ml: 100 PO CONTRAST: Isovue 300 ml50 TECHNIQUE: After the administration of oral and intravenous contrast, 5 mm thick sections acquired from the diap hragms to the symphysis. 5 mm thick coronal and sagittal reformats were acquired. For radiation dos e reduction, the following was used: automated exposure control, adjustment of mA and/or kV accordin g to patient size. COMPARISON: 06/27/2020 FINDINGS: Image quality: Excellent. ABDOMEN: Lung bases: Lung bases are clear. Unchanged nodular scarring, extreme right lung base. Heart size i s normal. Bilateral mammoplasties. Small hiatal hernia. Contrast in the esophagus suggests reflux, un less the patient stops drinking immediately prior to the study. Solid organs: Liver and spleen are normal in size and enhancement. Gallbladder is unremarkable. Bi liary system is non dilated. Pancreas enhances normally. No adrenal nodules. Kidneys demonstrate n ormal size and enhancement, without hydronephrosis. Peritoneum and bowel: Remote partial colectomy. Minimal subjacent lymph nodes are likely reactive. B owel loops demonstrate normal wall thickness and caliber. No free fluid or air. Sigmoid diverticulo sis without evidence of diverticulitis. Nodes and vessels: No retroperitoneal or mesenteric adenopathy by size criteria. Aorta and inferior vena cava are normal in size. Miscellaneous: No ventral hernias. PELVIS: Genitourinary: Bladder wall thickness is normal. Miscellaneous: No inguinal hernias or adenopathy. Uterus is surgically absent. Bones: No suspicious bony lesions. No vertebral body compression fractures. Lumbar degenerative harman nge. IMPRESSION: 1. Remote partial colectomy. 2. No evidence of metastatic disease in the abdomen and pelvis. Reviewed by: Stan Flor MD on 11/25/2020 1:37 PM PDT Approved by: Stan Flor MD on 11/25/2020 1:37 PM PDT Station ID: [id number]
== END 2020-11-25 09:54 | disposition home or self-care (01) ==
LOC: LAB 09:53
PROVIDERS: ATTEND Physician Assistant
DX: C18.2 Malignant neoplasm of ascending colon (principal)
CPT/HCPCS: 36415; 80053; 82378; 85027

== ENCOUNTER 2021-03-18 09:52 | Outpatient (CLI) | payer MEDICARE, MEDICAID ==
[2021-03-18 14:06] LABS: ESTIMATED AVERAGE GLUCOSE 131 mg/dL (70-100); HEMOGLOBIN A1c% 6.2 % (4.27-6.07)
[2021-03-18 16:21] LABS: ALBUMIN 4.1 g/dL (3.2-5.5); ALBUMIN/GLOBULIN RATIO 1.4 (1.0-2.2); BILIRUBIN,TOTAL 0.7 mg/dL (0.2-1.0); CALCIUM 9.3 mg/dL (8.5-10.3); CREATININE 0.7 mg/dL (0.4-1.0); POTASSIUM 4.5 mmol/L (3.5-5.0)
== END 2021-03-18 09:53 | disposition home or self-care (01) ==
LOC: LAB 09:52
PROVIDERS: ATTEND Physician Assistant
DX: E11.9 Type 2 diabetes mellitus without complications (principal); I10 Essential (primary) hypertension
CPT/HCPCS: 36415; 80053; 83036

== ENCOUNTER 2021-05-13 09:59 | Day surgery (SDC) | payer MEDICARE, MEDICAID ==
[2021-05-13] MEDS ORDERED: LACTATED RINGERS 1,000 ML IV ONE ×2 (10:02→11:23)
--- NOTE | 2021-05-13 10:31 | ANESTHESIA ---
Pre-Anesthesia VS, & Labs - Diagnosis history of colon cancer - Procedure colonoscopy Vital Signs: Temp Pulse Resp BP Pulse Ox 36.5 C 93 18 168/77 H 100 05/13/21 10:07 05/13/21 10:07 05/13/21 10:07 05/13/21 10:07 05/13/21 10:07 Height: 5 ft 4 in Weight (kg): 79 kg Body Mass Index: 29.9 BMI Classification: Overweight - NPO >8 hours - Is Patient ?: No Home Medications and Allergies Home Medications: Ambulatory Orders Losartan Potassium 25 mg PO DAILY 04/30/21 Calcium Carbonate [Tums (Calcium Carbonate 500mg)] 2 each PO PRN PRN 05/13/21 Omeprazole 20 mg PO DAILY 12/28/19 Multivitamin 2 each PO DAILY 02/01/20 Magnesium 250 mg PO DAILY 03/04/20 Cyanocobalamin (Vitamin B-12) [Vitamin B-12] 500 mcg PO DAILY 05/20/20 Losartan Potassium 25 mg PO DAILY 04/30/21 Calcium Carbonate [Tums (Calcium Carbonate 500mg)] 2 each PO PRN PRN 05/13/21 Allergies/Adverse Reactions: Allergies Allergy/AdvReac Type Severity Reaction Status Date / Time No Known Drug Allergies Allergy Verified 12/02/20 15:43 Anes History & Medical History - Anesthetic History Anesthesia Complications: reports: No previous complications - Medical History Cardiovascular: reports: Hypertension Pulmonary: reports: None Gastrointestinal: reports: GERD Urinary: reports: None Neuro: reports: None Musculoskeletal: reports: Chronic back pain Endocrine/Autoimmune: Blood Disorders: reports: None Skin: reports: Psoriasis Smoking Status: Never smoker History of Cancer?: Yes - Surgical History General: reports: Colonoscopy, EGD, Other Eyes Ears Nose Throat (EENT): reports: Cataracts, Detached retina repair Gynecologic: reports: Hysterectomy, Mastectomy, Other Exam General: Alert Dental: WNL Mouth Opening: Greater than 4 Fingerbreadths Mallampati classification: II Thyromental Distance: greater than 6 cm Respiratory: Lungs clear Cardiovascular: Regular rate Plan Anesthesia Type: Total IV Consent for Procedure(s) Verified and Reviewed: Yes Code Status: Attempt Resuscitation ASA classification: 2-Mild systemic disease Is this case an emergency?: No
[2021-05-13] MEDS ORDERED: PROPOFOL 500 MG/50 ML 500 MG/50 ML VIAL ONE (10:58)
[2021-05-13] MEDS ORDERED: LIDOCAINE-MPF 2% 5 ML VIAL ONE (10:58)
[2021-05-13] MEDS ORDERED: ONDANSETRON 4 MG/2 ML VIAL ONE (11:06)
[2021-05-13 11:37] VITALS: BP 122/67
--- NOTE | 2021-05-13 14:39 | ANESTHESIA POST OP EVALUATION ---
Anesthesia Post Eval - Post Anesthesia Eval Vitals: Last Vital Signs Temp 36.7 C 05/13/21 11:20 Pulse 72 05/13/21 11:36 Resp 18 05/13/21 11:36 BP 122/67 05/13/21 11:36 Pulse Ox 97 05/13/21 11:36 CV Function Including HR & BP: Stable Pain Control: Satisfactory Nausea & Vomiting: Negative Mental Status: Baseline Respiratory Status: Airway Patent Hydration Status: Satisfactory Anesthesia Complications: None
== END 2021-05-13 10:00 | disposition home or self-care (01) ==
LOC: SDS 09:59
PROVIDERS: ATTEND Surgery
DX: Z12.11 Encounter for screening for malignant neoplasm of colon (principal); K64.8 Other hemorrhoids; K57.30 Diverticulosis of large intestine without perforation or abscess without bleeding; I10 Essential (primary) hypertension; Z85.038 Personal history of other malignant neoplasm of large intestine
CPT/HCPCS: G0105; J7120

== ENCOUNTER 2022-10-15 08:00 | Outpatient (CLI) | payer MEDICARE | END 2022-10-15 23:59 | disposition home or self-care (01) | LOC: LAB.R 08:00 | PROVIDERS: ATTEND Internal Medicine | DX: R05.3 Chronic cough (principal); R91.1 Solitary pulmonary nodule | CPT/HCPCS: 87015; 87116; 87149; 87206 ==

== ENCOUNTER 2022-12-18 11:18 | Outpatient (CLI) | payer MEDICARE | END 2022-12-18 11:19 | disposition home or self-care (01) | LOC: LAB.S 11:18 | PROVIDERS: ATTEND Internal Medicine | DX: Z53.9 Procedure and treatment not carried out, unspecified reason (principal) ==

== ENCOUNTER 2023-02-16 10:12 | Outpatient (CLI) | payer MEDICARE ==
--- NOTE | 2023-02-16 13:21 | MRI Report ---
PROCEDURE: HIP WO - LT INDICATIONS: LEFT HIP PAIN TECHNIQUE: Noncontrast coronal T1 spin echo and STIR through the bony pelvis. Coronal and axial T2 fast spin ec ho with fat saturation, sagittal T1 spin echo, and oblique axial T2 fast spin echo with fat saturatio n through the hip. COMPARISON: CT of abdomen and pelvis dated 06/17/2022. FINDINGS: Image quality: Excellent. Bones and joints: Moderate bilateral hip joint osteoarthritic changes are seen with superior joint sp ish narrowing, subchondral sclerosis and small lateral marginal osteophyte formation. No intraosseous lesions or fractures. No avascular necrosis of the femoral heads. Degenerative disc disease in visu alized lower lumbar spine is seen. Tendons: There is low-grade partial-thickness tear involving distal gluteus medius tendon at its ins ertion on greater trochanter. Distal left gluteus medius minimus tendinosis at its insertion on great er trochanter is also seen. The iliopsoas tendon appears intact, without adjacent bursal fluid collec tions. Tendinosis involving origins of the hamstring tendons at ischial tuberosity is seen. Labrum and cartilage: The acetabular labrum appears intact in the absence of intra-articular contras t. Diffuse thinning of cartilage surface along left femoral head is seen. The alpha angle of the femu r is within normal limits at less than 55 degrees. Soft tissues: Visualized muscles demonstrate normal bulk and internal signal. The proximal sciatic neurovascular bundle appears normal adjacent to the hamstring tendons. No free pelvic fluid. Bladde r wall thickness is normal. Genitourinary structures and bowel loops appear normal where visualized. IMPRESSION: 1. Symmetric appearing moderate bilateral hip joint osteoarthritis. No pelvic or hip fracture. No rizwana dence of avascular necrosis. 2. Low grade partial-thickness tear involving distal left gluteus medias tendon at its insertion on g reater trochanter. Distal left gluteus minimus tendinosis. Tendinosis involving and strain tendon anny gins at ischial tuberosity. 3. No definite focal labral tear. 4. Moderate degenerative disc disease in visualized lower lumbar spine. Reviewed by: Tiago Joya MD on 02/16/2023 1:20 PM PDT Approved by: Tiago Joya MD on 02/16/2023 1:20 PM PDT Station ID: [id number]
== END 2023-02-16 10:13 | disposition home or self-care (01) ==
LOC: DI 10:12
PROVIDERS: ATTEND Orthopaedic Surgery
DX: M16.0 Bilateral primary osteoarthritis of hip (principal); S76.012A Strain of muscle, fascia and tendon of left hip, initial encounter; M51.36 Other intervertebral disc degeneration, lumbar region